=== PATIENT | male | born 1945 | race Caucasian/White ===

== ENCOUNTER 2019-10-02 11:53 | Emergency (ER) | payer MEDICARE, SELFPAY ==
[2019-10-02 12:11] LABS: Add Urine Microscopic? YES; Appearance Urine Clear (Clear); Bilirubin Urine Negative (Negative); Blood Urine 1+ (Negative); Color Urine Yellow (Yellow); Glucose Urine UA Negative (Negative); Ketones Urine Negative (Negative); Leukocyte Esterase Ur 3+ LEU/UL (Negative); Nitrate Urine Positive (Negative); Protein Urine Negative (Negative); Urobilinogen Urine 0.2 mg/dL (0.2-1.0)
[2019-10-02 12:12] VITALS: PULSE 84; RESP 16; TEMP 37.3; O2SAT 97
[2019-10-02 12:21] LABS: Bacteria Urine Trace /hpf; WBC Urine 51-75 /hpf (0-3)
[2019-10-02 12:24] LABS: Basophils Absolute Auto 0.01 K/mm3 (0.00-0.10); Basophils Percent Auto 0.1 % (0.0-1.0); Eosinophils Absolute Auto 0.02 K/mm3 (0.02-0.50); Eosinophils Percent Auto 0.2 % (1.0-6.0); Hemoglobin 12.4 g/dL (12.4-15.3); Immature Granulocyte Absolute 0.05 K/mm3 (0.00-0.00); Immature Granulocyte Percent A 0.5 % (0.0-0.0); Lymphocytes Absolute Auto 0.85 K/mm3 (1.10-4.50); Lymphocytes Percent Auto 8.7 % (18.0-42.0); Mean Corpuscular HGB Conc 34.4 g/dL (32.0-36.0); Mean Corpuscular Hemoglobin 32.1 pg (27.0-31.0); Mean Corpuscular Volume 93.3 fL (78.0-102.0); Mean Platelet Volume 8.6 fl (8.7-11.0); Monocytes Absolute Auto 0.69 K/mm3 (0.10-0.90); Monocytes Percent Auto 7.1 % (2.0-11.0); Neutrophils Absolute Auto 8.2 K/mm3 (1.7-7.2); Neutrophils Percent Auto 83.4 % (50.0-70.0); Platelet Count Result 154 K/mm3 (150-420); Red Blood Count 3.86 M/mm3 (4.70-6.10); Red Cell Distribution Width 13.3 % (11.6-14.4); White Blood Count 9.8 K/mm3 (4.8-10.8)
[2019-10-02 12:36] LABS: Alanine Aminotransferase 21 U/L (16-63); Albumin Level 3.6 g/dL (3.4-5.0); Alkaline Phosphatase 71 U/L (46-116); Anion Gap 18.3 mmol/L (7-16); Aspartate Amino Transferase 14 U/L (15-37); Bilirubin,Total 0.5 mg/dL (0.00-1.00); Blood Urea Nitrogen 40 mg/dL (7-18); Calcium 9.6 mg/dL (8.5-10.1); Carbon Dioxide 21 mmol/L (21-32); Chloride 104 mmol/L (98-108); Estimated Glomerular Filt Rate 26; Glucose 134 mg/dL (70-99); Osmolality Calculated 299 mOsm/kg (285-295); Potassium 4.3 mmol/L (3.5-5.1); Sodium 139 mmol/L (136-145)
[2019-10-02] MEDS: SODIUM CHLORIDE 0.9% IV 1,000 ML 500 ML (12:51)
--- NOTE | 2019-10-02 13:25 | ED.ABDPAIN ---
HPI - Abdominal Pain General Chief Complaint: Abdominal Pain Stated Complaint: abd and back pain Source: patient Mode of arrival: ambulatory Limitations: no limitations History of Present Illness HPI narrative: This 74 y.o. had lower abdominal cramping yesterday shooting into the left flank area associated with a temp of 101.5 and chills. He feels well this AM. His encouraged him to be seen. He had 1 liter urine output throughout the night, more than usual. He has a hx of right nephrectomy, cystectomy, prostatectomy and urostomy placement in 2003 secondary to bladder cancer; also CKD and htn. He has frequent urinary tract infections, last one in June treated with Augmentin. Severity: moderate Quality: cramping Exacerbating factors: nothing Relieving factors: nothing (Tylenol) and other Related Data Home Medications Medication Instructions Recorded Confirmed amlodipine 5 mg PO DAILY 10/02/19 10/02/19 lisinopril 10 mg PO DAILY 10/02/19 10/02/19 [id number]-[id number]-vit K-lycop 1 tablet PO DAILY 10/02/19 10/02/19 [Men's Multivitamin] Allergies Allergy/AdvReac Type Severity Reaction Status Date / Time iohexol Allergy Flushing Verified 10/02/19 12:11 [From contrast - CT, X-RAY] Review of Systems Constitutional: Constitutional: Reports no additional constitutional complaints ENT: Denies sore throat Cardiovascular: Cardiovascular: Denies chest pain Respiratory: Respiratory: Denies dyspnea Gastrointestinal: Comments: No appetite over the past 24 hours Musculoskeletal: Musculoskeletal: Reports no additional musculoskeletal complaints Integumentary/Breasts: Skin/Breast: Denies rash Neurologic: Denies headache(s) PMFSH Past Medical History Medical History (Updated 10/03/19 @ 06:37 by Ben Upton MD) Bladder cancer CKD (chronic kidney disease) stage 3, GFR 30-59 ml/min Hypertension Surgical History Surgical History (Updated 10/03/19 @ 06:28 by Ben Upton MD) H/O prostatectomy History of nephrectomy, right History of total cystectomy Family History Family History (Updated 01/11/16 @ 08:57 by DOCTOR UNKNOWN) Other Family history of cardiovascular disease Family history of malignant neoplasm Social History Social History Smoking status: Former smoker Smoking end date: 06/02/06 Alcohol intake: current Exam Const: General: healthy appearing, no acute distress and alert Orientation/consciousness: patient oriented x3 HENMT: Mouth: Yes moist mucous membranes Throat: posterior oropharynx normal Eyes: Conjunctivae: conjunctivae normal Neck: Neck: no lymphadenopathy Chest: Chest palpation & inspection: normal inspection of the chest Resp: Auscultation: clear to auscultation bilaterally Cardio: Rate: regular rate Rhythm: regular rhythm GI: GI Palp: Yes Soft to palpation, No Tenderness to palpation present (GI) and No Guarding due to palpation present (GI) Auscultation: Hypoactive bowel sounds present : General: Yes no CVA tenderness Other: minor tenderness to palpation left lateral flank. Urinary Catheter: Urinary Catheter: other (urostomy bag with light colored urine) Back/Spine/Pelvis: Back: no CVA tenderness Skin: General skin exam: normal color Neuro: General: patient oriented x3 Extrem: General: normal to inspection Course Course Emergency Course: No evidence of sepsis. With drop in kidney function pt. given 1 liter of fluids in E.D. and IV Rocephin. Await C & S I went over the importance of returning if he has recurrent pain. If fever or chills after 8 hours, return. Risk of inadequately treated pyelonephritis discussed. Vital Signs Vital signs: Vital Signs Temperature 37.3 C 10/02/19 12:12 Pulse Rate 84 10/02/19 12:12 Respiratory Rate 16 10/02/19 12:12 Pulse Oximetry 97 10/02/19 12:12 Temperature 37.3 C 10/02/19 12:12 Pulse Rate 70 10/02/19 14:12 Respiratory Rate 16 10/02/19 12:12 Blood Press
[2019-10-02] MEDS: cefTRIAXone 1 GM in DEXTROSE 5% IN WATER 50 ML IVPB (13:38)
[2019-10-02 14:12] VITALS: BP 153/72; PULSE 70; O2SAT 100
== END 2019-10-02 14:20 | disposition home or self-care (01) ==
PROVIDERS: Emergency Provider Family Medicine; PCP Internal Medicine
DX: N39.0 Urinary tract infection, site not specified (principal); Z85.51 Personal history of malignant neoplasm of bladder; N18.3 Chronic kidney disease, stage 3 (moderate); I12.9 Hypertensive chronic kidney disease with stage 1 through stage 4 chronic kidney disease, or unspecified chronic kidney disease; Z87.891 Personal history of nicotine dependence
CPT/HCPCS: 36415; 80053; 81001; 85025; 87086; 87088; 87147; 87186; 96361; 96365; 99283; 99284; J0696; J7030

== ENCOUNTER 2019-10-05 07:34 | Outpatient (CLI) | payer MEDICARE, SELFPAY ==
--- NOTE | ~2019-10-05 | CT_ITS ---
EXAMINATION: CT abdomen pelvis wo con DATE: 10/05/2019 09:45 INDICATION: Bladder cancer. Lower abdominal pain. TECHNIQUE: Computed tomography (CT) of the abdomen and pelvis was performed without intravenous contr ast. The dose-length product was 977.33 mGy-cm. Automated exposure control and iterative reconstructi on technique were employed. COMPARISON: CT dated 07/22/2017 FINDINGS: Lung bases are unremarkable. No significant pleural or pericardial effusion. Heart size is normal. There is a 2 cm cyst left hepatic lobe. There are smaller subcentimeter hypodensities, also l ikely benign. The spleen, pancreas, adrenal glands are unremarkable. The right kidney is surgically a bsent. Status post cystectomy. There is an ileal conduit in the right abdomen with parastomal hernia containing nonobstructed small bowel and colon small left paracentral ventral hernia containing fat. There is mild urothelial thickening of the left ureter. There are small subcentimeter hypodensities o f the left kidney, most likely cysts. The spleen, adrenal glands are unremarkable. Gallbladder is present. There is an accessory splenule. There is a punctate calcification of the pancreas, consistent with chronic pancreatitis. There is mil d lumbar spondylosis. No osteolytic or osteoblastic lesions are seen. IMPRESSION: 1. Mild left urothelial thickening. Consider correlation with urinalysis if there is concern for asce nding urinary tract infection. 2: No evidence for metastatic disease. 3: Status post right nephrectomy and cystectomy with ileal conduit. Peristomal hernia contains nonobs tructed colon and small bowel. Reviewed, dictated and finalized at location A. IMPRESSION: 1. Mild left urothelial thickening. Consider correlation with urinalysis if the re is concern for ascending urinary tract infection. 2: No evidence for metastatic disease. 3: Status post right nephrectomy and cystectomy with ileal conduit. Peristomal hernia contains nonobstructed colon and small bowel.
== END 2019-10-05 07:35 | disposition home or self-care (01) ==
LOC: CHSIMG 07:35
PROVIDERS: PCP Internal Medicine; Visit Provider Internal Medicine
DX: R10.30 Lower abdominal pain, unspecified (principal); N18.4 Chronic kidney disease, stage 4 (severe); K46.9 Unspecified abdominal hernia without obstruction or gangrene
CPT/HCPCS: 74176

== ENCOUNTER 2019-10-11 07:21 | Outpatient (CLI) | payer MEDICARE, SELFPAY ==
[2019-10-11 07:33] LABS: Basophils Absolute Auto 0.03 K/mm3 (0.00-0.10); Basophils Percent Auto 0.6 % (0.0-1.0); Eosinophils Absolute Auto 0.11 K/mm3 (0.02-0.50); Eosinophils Percent Auto 2.2 % (1.0-6.0); Hematocrit 37.9 % (37.0-46.0); Hemoglobin 12.7 g/dL (12.4-15.3); Immature Granulocyte Absolute 0.04 K/mm3 (0.00-0.00); Immature Granulocyte Percent A 0.8 % (0.0-0.0); Lymphocytes Absolute Auto 1.21 K/mm3 (1.10-4.50); Lymphocytes Percent Auto 24.5 % (18.0-42.0); Mean Corpuscular HGB Conc 33.5 g/dL (32.0-36.0); Mean Corpuscular Hemoglobin 31.6 pg (27.0-31.0); Mean Corpuscular Volume 94.3 fL (78.0-102.0); Mean Platelet Volume 8.5 fl (8.7-11.0); Monocytes Absolute Auto 0.36 K/mm3 (0.10-0.90); Monocytes Percent Auto 7.3 % (2.0-11.0); Neutrophils Absolute Auto 3.2 K/mm3 (1.7-7.2); Neutrophils Percent Auto 64.6 % (50.0-70.0); Platelet Count Result 211 K/mm3 (150-420); Red Blood Count 4.02 M/mm3 (4.70-6.10); Red Cell Distribution Width 12.8 % (11.6-14.4); White Blood Count 4.9 K/mm3 (4.8-10.8)
[2019-10-11 07:34] LABS: Add Urine Microscopic? NO; Appearance Urine Clear (Clear); Bilirubin Urine Negative (Negative); Blood Urine Negative (Negative); Color Urine Yellow (Yellow); Glucose Urine UA Negative (Negative); Ketones Urine Negative (Negative); Leukocyte Esterase Ur Negative (Negative); Nitrate Urine Negative (Negative); Protein Urine Negative (Negative); Specific Grav Ur 1.015 (1.010-1.020); Urobilinogen Urine 0.2 mg/dL (0.2-1.0)
[2019-10-11 08:03] LABS: Blood Urea Nitrogen 31 mg/dL (7-18); Calcium 9.3 mg/dL (8.5-10.1); Carbon Dioxide 27 mmol/L (21-32); Chloride 106 mmol/L (98-108); Estimated Glomerular Filt Rate 32; Glucose 126 mg/dL (70-99); Osmolality Calculated 302 mOsm/kg (285-295); Sodium 142 mmol/L (136-145)
== END 2019-10-11 07:22 | disposition home or self-care (01) ==
LOC: CHSLAB 07:22
PROVIDERS: PCP Internal Medicine; Visit Provider Internal Medicine
DX: N39.0 Urinary tract infection, site not specified (principal); N18.4 Chronic kidney disease, stage 4 (severe)
CPT/HCPCS: 36415; 80048; 81003; 85025; 87086

== ENCOUNTER 2020-02-14 08:14 | Outpatient (CLI) | payer MEDICARE, SELFPAY ==
[2020-02-14 08:29] LABS: Hematocrit 38.2 % (37.0-46.0); Hemoglobin 12.2 g/dL (12.4-15.3); Mean Corpuscular HGB Conc 31.9 g/dL (32.0-36.0); Mean Corpuscular Hemoglobin 31.9 pg (27.0-31.0); Mean Corpuscular Volume 99.7 fL (78.0-102.0); Platelet Count Result 199 K/mm3 (150-420); Red Blood Count 3.83 M/mm3 (4.70-6.10); Red Cell Distribution Width 12.5 % (11.6-14.4); White Blood Count 9.5 K/mm3 (4.8-10.8)
[2020-02-14 08:31] LABS: Bilirubin Urine Negative (Negative); Blood Urine 2+ (Negative); Glucose Urine UA Negative (Negative); Ketones Urine Negative (Negative); Leukocyte Esterase Ur 3+ LEU/UL (Negative); Nitrate Urine Positive (Negative); Protein Urine Negative (Negative); Specific Grav Ur 1.015 (1.010-1.020); Urobilinogen Urine 0.2 mg/dL (0.2-1.0)
[2020-02-14 08:38] LABS: Hemoglobin A1C 5.8 % (<5.7)
[2020-02-14 08:47] LABS: Color Urine Yellow (Yellow)
[2020-02-14 08:48] LABS: Add Urine Microscopic? YES; Appearance Urine Cloudy (Clear); RBC Urine 21-50 /hpf (0-2); Squamous Epithelial Cell Urine Few /hpf (Few); WBC Urine >75 /hpf (0-3)
[2020-02-14 08:49] LABS: Bacteria Urine 3+ /hpf; Transitional Epi Cells Urine Occasional /hpf
[2020-02-14 09:34] LABS: Alanine Aminotransferase 19 U/L (16-63); Albumin Level 3.9 g/dL (3.4-5.0); Alkaline Phosphatase 67 U/L (46-116); Anion Gap 11 mmol/L (8-16); Aspartate Amino Transferase 10 U/L (15-37); Bilirubin,Total 0.5 mg/dL (0.00-1.00); Blood Urea Nitrogen 50 mg/dL (7-18); Calcium 9.1 mg/dL (8.5-10.1); Carbon Dioxide 22 mmol/L (21-32); Chloride 104 mmol/L (98-108); Cholesterol 146 mg/dL (0-200); Estimated Glomerular Filt Rate 23; Glucose 141 mg/dL (70-99); HDL Direct 48 mg/dL (40-60); LDL Cholesterol Calculated 80 mg/dL (<130); Osmolality Calculated 299 mOsm/kg (285-295); Potassium 4.9 mmol/L (3.5-5.1); Sodium 137 mmol/L (136-145); Total Protein 7.2 g/dL (6.4-8.2); Triglycerides 92 mg/dL (0-150)
[2020-02-18 14:03] LABS: Parathyroid Intact 31 pg/mL (14-64)
== END 2020-02-14 08:15 | disposition home or self-care (01) ==
LOC: CHSLAB 08:18
PROVIDERS: PCP Internal Medicine; Visit Provider Internal Medicine
DX: E78.2 Mixed hyperlipidemia (principal); I12.9 Hypertensive chronic kidney disease with stage 1 through stage 4 chronic kidney disease, or unspecified chronic kidney disease; N18.3 Chronic kidney disease, stage 3 (moderate); R73.01 Impaired fasting glucose; R82.90 Unspecified abnormal findings in urine
CPT/HCPCS: 36415; 80053; 80061; 81001; 83036; 83970; 85027; 87077; 87086; 87088; 87186

== ENCOUNTER 2020-02-17 08:32 | Outpatient (CLI) | payer MEDICARE, SELFPAY ==
[2020-02-17 09:22] LABS: Anion Gap 9 mmol/L (8-16); Blood Urea Nitrogen 49 mg/dL (7-18); Calcium 9.3 mg/dL (8.5-10.1); Carbon Dioxide 25 mmol/L (21-32); Chloride 106 mmol/L (98-108); Estimated Glomerular Filt Rate 24; Glucose 117 mg/dL (70-99); Osmolality Calculated 304 mOsm/kg (285-295); Potassium 4.9 mmol/L (3.5-5.1); Sodium 140 mmol/L (136-145)
== END 2020-02-17 08:33 | disposition home or self-care (01) ==
LOC: CHSLAB 08:34
PROVIDERS: PCP Internal Medicine; Visit Provider Internal Medicine
DX: N18.3 Chronic kidney disease, stage 3 (moderate) (principal)
CPT/HCPCS: 36415; 80048

== ENCOUNTER 2020-02-23 13:32 | Outpatient (CLI) | payer MEDICARE, SELFPAY ==
[2020-02-23 13:45] LABS: Add Urine Microscopic? NO; Appearance Urine Clear (Clear); Bilirubin Urine Negative (Negative); Blood Urine Negative (Negative); Color Urine Yellow (Yellow); Glucose Urine UA Negative (Negative); Ketones Urine Negative (Negative); Leukocyte Esterase Ur Negative (Negative); Nitrate Urine Negative (Negative); Protein Urine Negative (Negative); Specific Grav Ur <= 1.005 (1.010-1.020); Urobilinogen Urine 0.2 mg/dL (0.2-1.0)
[2020-02-23 14:27] LABS: Anion Gap 12 mmol/L (8-16); Blood Urea Nitrogen 43 mg/dL (7-18); Calcium 9.4 mg/dL (8.5-10.1); Carbon Dioxide 22 mmol/L (21-32); Chloride 103 mmol/L (98-108); Estimated Glomerular Filt Rate 25; Glucose 106 mg/dL (70-99); Osmolality Calculated 294 mOsm/kg (285-295); Potassium 4.7 mmol/L (3.5-5.1); Sodium 137 mmol/L (136-145)
== END 2020-02-23 13:33 | disposition home or self-care (01) ==
LOC: CHSLAB 13:34
PROVIDERS: PCP Internal Medicine; Visit Provider Internal Medicine
DX: N39.0 Urinary tract infection, site not specified (principal); N18.4 Chronic kidney disease, stage 4 (severe)
CPT/HCPCS: 36415; 80048; 81003; 87086; 87088

== ENCOUNTER 2020-03-06 14:51 | Outpatient (CLI) | payer MEDICARE, SELFPAY ==
[2020-03-06 15:06] LABS: Appearance Urine Clear (Clear); Bilirubin Urine Negative (Negative); Color Urine Yellow (Yellow); Glucose Urine UA Negative (Negative); Ketones Urine Negative (Negative); Leukocyte Esterase Ur 2+ (Negative); Nitrate Urine Positive (Negative); Protein Urine Negative (Negative); Urobilinogen Urine 0.2 mg/dL (0.2-1.0)
[2020-03-06 15:10] LABS: Add Urine Microscopic? YES; Bacteria Urine 3+ /hpf; Blood Urine Trace (Negative); RBC Urine 0-2 /hpf (0-2); Squamous Epithelial Cell Urine Rare /hpf (Few); WBC Urine 21-30 /hpf (0-3)
[2020-03-06 15:27] LABS: Anion Gap 11 mmol/L (8-16); Blood Urea Nitrogen 41 mg/dL (7-18); Calcium 8.9 mg/dL (8.5-10.1); Carbon Dioxide 25 mmol/L (21-32); Chloride 106 mmol/L (98-108); Estimated Glomerular Filt Rate 27; Glucose 110 mg/dL (70-99); Osmolality Calculated 305 mOsm/kg (285-295); Potassium 4.4 mmol/L (3.5-5.1); Sodium 142 mmol/L (136-145)
== END 2020-03-06 14:52 | disposition home or self-care (01) ==
LOC: CHSLAB 14:53
PROVIDERS: PCP Internal Medicine; Visit Provider Internal Medicine
DX: N30.00 Acute cystitis without hematuria (principal); N18.30 Chronic kidney disease, stage 3 unspecified
CPT/HCPCS: 36415; 80048; 81001; 87077; 87086; 87088; 87186

== ENCOUNTER 2020-03-14 08:24 | Outpatient (CLI) | payer MEDICARE, SELFPAY ==
[2020-03-14 09:52] LABS: Anion Gap 11 mmol/L (8-16); Blood Urea Nitrogen 38 mg/dL (7-18); Calcium 9.2 mg/dL (8.5-10.1); Carbon Dioxide 23 mmol/L (21-32); Chloride 105 mmol/L (98-108); Estimated Glomerular Filt Rate 26; Glucose 112 mg/dL (70-99); Osmolality Calculated 298 mOsm/kg (285-295); Potassium 4.9 mmol/L (3.5-5.1); Sodium 139 mmol/L (136-145)
== END 2020-03-14 08:25 | disposition home or self-care (01) ==
LOC: CHSLAB 08:25
PROVIDERS: PCP Internal Medicine; Visit Provider Internal Medicine
DX: R79.89 Other specified abnormal findings of blood chemistry (principal)
CPT/HCPCS: 36415; 80048

== ENCOUNTER 2020-03-30 08:56 | Outpatient (CLI) | payer MEDICARE, SELFPAY ==
[2020-03-30 09:31] LABS: Anion Gap 9 mmol/L (8-16); Blood Urea Nitrogen 30 mg/dL (7-18); Calcium 9.1 mg/dL (8.5-10.1); Carbon Dioxide 28 mmol/L (21-32); Chloride 106 mmol/L (98-108); Estimated Glomerular Filt Rate 28; Glucose 165 mg/dL (70-99); Osmolality Calculated 306 mOsm/kg (285-295); Potassium 4.6 mmol/L (3.5-5.1); Sodium 143 mmol/L (136-145)
== END 2020-03-30 08:57 | disposition home or self-care (01) ==
LOC: CHSLAB 08:58
PROVIDERS: PCP Internal Medicine; Visit Provider Internal Medicine
DX: R79.89 Other specified abnormal findings of blood chemistry (principal)
CPT/HCPCS: 36415; 80048

== ENCOUNTER 2020-08-25 09:31 | Outpatient (CLI) | payer MEDICARE, SELFPAY ==
[2020-08-25 09:47] LABS: Basophils Absolute Auto 0.01 K/mm3 (0.00-0.10); Basophils Percent Auto 0.2 % (0.0-1.0); Eosinophils Absolute Auto 0.05 K/mm3 (0.02-0.50); Eosinophils Percent Auto 0.8 % (1.0-6.0); Hematocrit 33.6 % (37.0-46.0); Hemoglobin 11.3 g/dL (12.4-15.3); Immature Granulocyte Absolute 0.02 K/mm3 (0.00-0.00); Immature Granulocyte Percent A 0.3 % (0.0-0.0); Lymphocytes Absolute Auto 1.07 K/mm3 (1.10-4.50); Lymphocytes Percent Auto 17.8 % (18.0-42.0); Mean Corpuscular HGB Conc 33.6 g/dL (32.0-36.0); Mean Corpuscular Hemoglobin 31.4 pg (27.0-31.0); Mean Corpuscular Volume 93.3 fL (78.0-102.0); Mean Platelet Volume 8.2 fl (8.7-11.0); Monocytes Absolute Auto 0.52 K/mm3 (0.10-0.90); Monocytes Percent Auto 8.7 % (2.0-11.0); Neutrophils Absolute Auto 4.3 K/mm3 (1.7-7.2); Neutrophils Percent Auto 72.2 % (50.0-70.0); Platelet Count Result 153 K/mm3 (150-420); Red Cell Distribution Width 13.2 % (11.6-14.4)
[2020-08-25 10:11] LABS: Hemoglobin A1C 5.8 % (<5.7)
[2020-08-25 10:27] LABS: Alanine Aminotransferase 19 U/L (16-63); Albumin Level 3.5 g/dL (3.4-5.0); Alkaline Phosphatase 67 U/L (46-116); Anion Gap 11 mmol/L (8-16); Aspartate Amino Transferase 16 U/L (15-37); Bilirubin,Total 0.6 mg/dL (0.00-1.00); Blood Urea Nitrogen 39 mg/dL (7-18); Calcium 8.8 mg/dL (8.5-10.1); Carbon Dioxide 26 mmol/L (21-32); Chloride 103 mmol/L (98-108); Cholesterol 140 mg/dL (0-200); Creatine Kinase 87 U/L (39-308); Estimated Glomerular Filt Rate 21; Glucose 129 mg/dL (70-99); HDL Direct 45 mg/dL (40-60); LDL Cholesterol Calculated 70 mg/dL (<130); Osmolality Calculated 301 mOsm/kg (285-295); Potassium 4.4 mmol/L (3.5-5.1); Sodium 140 mmol/L (136-145); Total Protein 6.7 g/dL (6.4-8.2); Triglycerides 123 mg/dL (0-150)
[2020-08-25 10:48] LABS: Add Urine Microscopic? YES; Appearance Urine Sl Cloudy (Clear); Bilirubin Urine Negative (Negative); Blood Urine 1+ (Negative); Color Urine Yellow (Yellow); Glucose Urine UA Negative (Negative); Ketones Urine Negative (Negative); Leukocyte Esterase Ur 3+ (Negative); Nitrate Urine Negative (Negative); Protein Urine Trace (Negative); Urobilinogen Urine 0.2 mg/dL (0.2-1.0)
[2020-08-25 10:53] LABS: Bacteria Urine 3+ /hpf; WBC Urine 51-75 /hpf (0-3)
== END 2020-08-25 09:32 | disposition home or self-care (01) ==
LOC: CHSLAB 09:32
PROVIDERS: PCP Internal Medicine; Visit Provider Internal Medicine
DX: N39.0 Urinary tract infection, site not specified (principal); I12.9 Hypertensive chronic kidney disease with stage 1 through stage 4 chronic kidney disease, or unspecified chronic kidney disease; R73.01 Impaired fasting glucose; N18.30 Chronic kidney disease, stage 3 unspecified; E78.2 Mixed hyperlipidemia
CPT/HCPCS: 36415; 80053; 80061; 81001; 82550; 83036; 85025; 87077; 87086; 87088; 87186

== ENCOUNTER 2020-09-01 07:48 | Outpatient (CLI) | payer MEDICARE, SELFPAY ==
[2020-09-01 08:01] LABS: Add Urine Microscopic? YES; Appearance Urine Clear (Clear); Bilirubin Urine Negative (Negative); Blood Urine Negative (Negative); Color Urine Yellow (Yellow); Glucose Urine UA Negative (Negative); Ketones Urine Negative (Negative); Leukocyte Esterase Ur 1+ (Negative); Nitrate Urine Positive (Negative); Protein Urine Negative (Negative); Specific Grav Ur 1.015 (1.010-1.020); Urobilinogen Urine 0.2 mg/dL (0.2-1.0); pH Urine 5.5 (5.0-8.0)
[2020-09-01 08:09] LABS: RBC Urine 0-2 /hpf (0-2)
[2020-09-01 08:10] LABS: Bacteria Urine Trace /hpf; Squamous Epithelial Cell Urine Rare /hpf (Few)
== END 2020-09-01 07:49 | disposition home or self-care (01) ==
LOC: CHSLAB 07:50
PROVIDERS: PCP Internal Medicine; Visit Provider Internal Medicine
DX: N39.0 Urinary tract infection, site not specified (principal)
CPT/HCPCS: 81001; 87077; 87086; 87088; 87186

== ENCOUNTER 2020-09-11 08:13 | Outpatient (CLI) | payer MEDICARE, SELFPAY ==
[2020-09-11 08:24] LABS: Add Urine Microscopic? YES; Appearance Urine Sl Cloudy (Clear); Bilirubin Urine Negative (Negative); Blood Urine 1+ (Negative); Color Urine Yellow (Yellow); Glucose Urine UA Negative (Negative); Ketones Urine Negative (Negative); Leukocyte Esterase Ur 3+ (Negative); Nitrate Urine Negative (Negative); Protein Urine Trace (Negative); Specific Grav Ur 1.015 (1.010-1.020); Urobilinogen Urine 0.2 mg/dL (0.2-1.0)
[2020-09-11 08:29] LABS: Bacteria Urine Trace /hpf; WBC Urine 31-50 /hpf (0-3)
[2020-09-11 09:44] LABS: Anion Gap 8 mmol/L (8-16); Blood Urea Nitrogen 39 mg/dL (7-18); Calcium 8.8 mg/dL (8.5-10.1); Carbon Dioxide 25 mmol/L (21-32); Chloride 107 mmol/L (98-108); Estimated Glomerular Filt Rate 25; Glucose 125 mg/dL (70-99); Osmolality Calculated 300 mOsm/kg (285-295); Potassium 4.8 mmol/L (3.5-5.1); Sodium 140 mmol/L (136-145)
== END 2020-09-11 08:14 | disposition home or self-care (01) ==
LOC: CHSLAB 08:14
PROVIDERS: PCP Internal Medicine; Visit Provider Internal Medicine
DX: R79.89 Other specified abnormal findings of blood chemistry (principal); N39.0 Urinary tract infection, site not specified
CPT/HCPCS: 36415; 80048; 81001; 87077; 87086; 87088; 87186

== ENCOUNTER 2020-12-20 07:22 | Outpatient (CLI) | payer MEDICARE, SELFPAY ==
[2020-12-20 07:37] LABS: Basophils Absolute Auto 0.02 K/mm3 (0.00-0.10); Basophils Percent Auto 0.4 % (0.0-1.0); Eosinophils Absolute Auto 0.13 K/mm3 (0.02-0.50); Eosinophils Percent Auto 2.9 % (1.0-6.0); Hemoglobin 11.6 g/dL (12.4-15.3); Immature Granulocyte Absolute 0.02 K/mm3 (0.00-0.00); Immature Granulocyte Percent A 0.4 % (0.0-0.0); Lymphocytes Absolute Auto 1.32 K/mm3 (1.10-4.50); Lymphocytes Percent Auto 28.9 % (18.0-42.0); Mean Corpuscular HGB Conc 33.1 g/dL (32.0-36.0); Mean Corpuscular Hemoglobin 31.3 pg (27.0-31.0); Mean Corpuscular Volume 94.3 fL (78.0-102.0); Mean Platelet Volume 8.4 fl (8.7-11.0); Monocytes Absolute Auto 0.32 K/mm3 (0.10-0.90); Neutrophils Absolute Auto 2.8 K/mm3 (1.7-7.2); Neutrophils Percent Auto 60.4 % (50.0-70.0); Platelet Count Result 158 K/mm3 (150-420); Red Blood Count 3.71 M/mm3 (4.70-6.10); Red Cell Distribution Width 13.5 % (11.6-14.4); White Blood Count 4.6 K/mm3 (4.8-10.8)
[2020-12-20 07:38] LABS: Appearance Urine Sl Cloudy (Clear); Bilirubin Urine Negative (Negative); Color Urine Light Yellow (Yellow); Glucose Urine UA Negative (Negative); Ketones Urine Negative (Negative); Leukocyte Esterase Ur 3+ (Negative); Nitrate Urine Negative (Negative); Protein Urine Negative (Negative); Specific Grav Ur 1.015 (1.010-1.020); Urobilinogen Urine 0.2 mg/dL (0.2-1.0)
[2020-12-20 07:43] LABS: Add Urine Microscopic? YES; Bacteria Urine 3+ /hpf; Blood Urine Trace-Intact (Negative); RBC Urine 0-2 /hpf (0-2); WBC Urine 16-20 /hpf (0-3)
[2020-12-20 08:13] LABS: Hemoglobin A1C 5.5 % (<5.7)
[2020-12-20 08:34] LABS: Alanine Aminotransferase 22 U/L (16-63); Albumin Level 3.6 g/dL (3.4-5.0); Alkaline Phosphatase 69 U/L (46-116); Anion Gap 11 mmol/L (8-16); Aspartate Amino Transferase 12 U/L (15-37); Bilirubin,Total 0.3 mg/dL (0.00-1.00); Blood Urea Nitrogen 45 mg/dL (7-18); Carbon Dioxide 24 mmol/L (21-32); Chloride 108 mmol/L (98-108); Estimated Glomerular Filt Rate 28; Ferritin 345 ng/mL (26-388); Glucose 111 mg/dL (70-99); Iron 60 ug/dL (65-175); Osmolality Calculated 308 mOsm/kg (285-295); Percent Iron Saturation 23 % (12-57); Potassium 5.1 mmol/L (3.5-5.1); Sodium 143 mmol/L (136-145); Total Protein 6.6 g/dL (6.4-8.2)
== END 2020-12-20 07:23 | disposition home or self-care (01) ==
LOC: CHSLAB 07:25
PROVIDERS: PCP Internal Medicine; Visit Provider Internal Medicine
DX: R73.01 Impaired fasting glucose (principal); I12.9 Hypertensive chronic kidney disease with stage 1 through stage 4 chronic kidney disease, or unspecified chronic kidney disease; N18.30 Chronic kidney disease, stage 3 unspecified; N30.00 Acute cystitis without hematuria; D50.9 Iron deficiency anemia, unspecified
CPT/HCPCS: 36415; 80053; 81001; 82728; 83036; 83540; 83550; 85025; 87077; 87086; 87088; 87186

== ENCOUNTER 2021-01-02 07:07 | Outpatient (CLI) | payer MEDICARE, SELFPAY ==
[2021-01-02 07:26] LABS: Appearance Urine Clear (Clear); Bilirubin Urine Negative (Negative); Color Urine Light Yellow (Yellow); Glucose Urine UA Negative (Negative); Ketones Urine Negative (Negative); Leukocyte Esterase Ur Negative (Negative); Nitrate Urine Negative (Negative); Protein Urine Trace (Negative); Urobilinogen Urine 0.2 mg/dL (0.2-1.0)
[2021-01-02 07:38] LABS: Add Urine Microscopic? YES; Blood Urine Trace-Intact (Negative); Squamous Epithelial Cell Urine Rare /hpf (Few)
[2021-01-02 07:39] LABS: Bacteria Urine Trace /hpf
== END 2021-01-02 07:08 | disposition home or self-care (01) ==
LOC: CHSLAB 07:08
PROVIDERS: PCP Internal Medicine; Visit Provider Internal Medicine
DX: N39.0 Urinary tract infection, site not specified (principal)
CPT/HCPCS: 81001; 87086

== ENCOUNTER 2021-01-15 11:14 | Outpatient (CLI) | payer MEDICARE, SELFPAY ==
[2021-01-15 11:26] LABS: Basophils Absolute Auto 0.03 K/mm3 (0.00-0.10); Basophils Percent Auto 0.5 % (0.0-1.0); Eosinophils Absolute Auto 0.16 K/mm3 (0.02-0.50); Eosinophils Percent Auto 2.7 % (1.0-6.0); Hematocrit 35.7 % (37.0-46.0); Hemoglobin 11.8 g/dL (12.4-15.3); Immature Granulocyte Absolute 0.02 K/mm3 (0.00-0.00); Immature Granulocyte Percent A 0.3 % (0.0-0.0); Lymphocytes Absolute Auto 1.78 K/mm3 (1.10-4.50); Lymphocytes Percent Auto 30.6 % (18.0-42.0); Mean Corpuscular HGB Conc 33.1 g/dL (32.0-36.0); Mean Corpuscular Hemoglobin 31.5 pg (27.0-31.0); Mean Corpuscular Volume 95.2 fL (78.0-102.0); Mean Platelet Volume 8.4 fl (8.7-11.0); Monocytes Absolute Auto 0.41 K/mm3 (0.10-0.90); Neutrophils Absolute Auto 3.4 K/mm3 (1.7-7.2); Neutrophils Percent Auto 58.9 % (50.0-70.0); Platelet Count Result 144 K/mm3 (150-420); Red Blood Count 3.75 M/mm3 (4.70-6.10); Red Cell Distribution Width 13.4 % (11.6-14.4); White Blood Count 5.8 K/mm3 (4.8-10.8)
[2021-01-15 13:35] LABS: Anion Gap 13 mmol/L (8-16); Blood Urea Nitrogen 50 mg/dL (7-18); Calcium 8.7 mg/dL (8.5-10.1); Carbon Dioxide 20 mmol/L (21-32); Chloride 110 mmol/L (98-108); Estimated Glomerular Filt Rate 21; Ferritin 345 ng/mL (26-388); Glucose 87 mg/dL (70-99); Iron 106 ug/dL (65-175); Osmolality Calculated 308 mOsm/kg (285-295); Percent Iron Saturation 36 % (12-57); Potassium 5.2 mmol/L (3.5-5.1); Sodium 143 mmol/L (136-145)
== END 2021-01-15 11:15 | disposition home or self-care (01) ==
LOC: CHSLAB 11:16
PROVIDERS: PCP Internal Medicine; Visit Provider Internal Medicine
DX: R79.89 Other specified abnormal findings of blood chemistry (principal); D50.9 Iron deficiency anemia, unspecified
CPT/HCPCS: 36415; 80048; 82728; 83540; 83550; 85025

== ENCOUNTER 2021-06-19 07:46 | Outpatient (CLI) | payer MEDICARE, SELFPAY ==
[2021-06-19 08:00] LABS: Add Urine Microscopic? YES; Appearance Urine Sl Cloudy (Clear); Basophils Absolute Auto 0.03 K/mm3 (0.00-0.10); Basophils Percent Auto 0.6 % (0.0-1.0); Bilirubin Urine Negative (Negative); Blood Urine 3+ (Negative); Color Urine Light Yellow (Yellow); Eosinophils Absolute Auto 0.19 K/mm3 (0.02-0.50); Eosinophils Percent Auto 3.5 % (1.0-6.0); Glucose Urine UA Negative (Negative); Hematocrit 37.5 % (37.0-46.0); Hemoglobin 12.9 g/dL (12.4-15.3); Immature Granulocyte Absolute 0.02 K/mm3 (0.00-0.00); Immature Granulocyte Percent A 0.4 % (0.0-0.0); Ketones Urine Negative (Negative); Leukocyte Esterase Ur 2+ LEU/UL (Negative); Lymphocytes Percent Auto 33.4 % (18.0-42.0); Mean Corpuscular HGB Conc 34.4 g/dL (32.0-36.0); Mean Corpuscular Hemoglobin 32.4 pg (27.0-31.0); Mean Corpuscular Volume 94.2 fL (78.0-102.0); Mean Platelet Volume 8.4 fl (8.7-11.0); Monocytes Absolute Auto 0.33 K/mm3 (0.10-0.90); Monocytes Percent Auto 6.1 % (2.0-11.0); Nitrate Urine Negative (Negative); Platelet Count Result 132 K/mm3 (150-420); Protein Urine 2+ (Negative); Red Blood Count 3.98 M/mm3 (4.70-6.10); Red Cell Distribution Width 12.4 % (11.6-14.4); Urobilinogen Urine 0.2 mg/dL (0.2-1.0); White Blood Count 5.4 K/mm3 (4.8-10.8)
[2021-06-19 08:08] LABS: Bacteria Urine Trace /hpf; RBC Urine 21-50 /hpf (0-2); WBC Urine 16-20 /hpf (0-3)
[2021-06-19 09:29] LABS: Alanine Aminotransferase 21 U/L (16-63); Albumin Level 3.9 g/dL (3.4-5.0); Alkaline Phosphatase 65 U/L (46-116); Anion Gap 11 mmol/L (8-16); Aspartate Amino Transferase 13 U/L (15-37); Bilirubin,Total 0.3 mg/dL (0.00-1.00); Blood Urea Nitrogen 39 mg/dL (7-18); Calcium 8.8 mg/dL (8.5-10.1); Carbon Dioxide 22 mmol/L (21-32); Chloride 108 mmol/L (98-108); Cholesterol 153 mg/dL (0-200); Estimated Glomerular Filt Rate 27; Glucose 114 mg/dL (70-99); HDL Direct 47 mg/dL (40-60); LDL Cholesterol Calculated 89 mg/dL (<130); Osmolality Calculated 302 mOsm/kg (285-295); Potassium 4.6 mmol/L (3.5-5.1); Sodium 141 mmol/L (136-145); Total Protein 6.6 g/dL (6.4-8.2); Triglycerides 83 mg/dL (0-150)
[2021-06-19 09:41] LABS: Prostate Specific Antigen < 0.1 ng/mL (< OR = 4.0)
== END 2021-06-19 07:47 | disposition home or self-care (01) ==
LOC: CHSLAB 07:49
PROVIDERS: PCP Internal Medicine; Visit Provider Internal Medicine
DX: N39.0 Urinary tract infection, site not specified (principal); I10 Essential (primary) hypertension; Z12.5 Encounter for screening for malignant neoplasm of prostate; Z00.00 Encounter for general adult medical examination without abnormal findings
CPT/HCPCS: 36415; 80053; 80061; 81001; 84153; 85025; 87077; 87086; 87088; 87186; G0103

== ENCOUNTER 2021-11-19 07:30 | Outpatient (CLI) | payer MEDICARE, SELFPAY ==
--- NOTE | ~2021-11-19 | US_ITS ---
EXAMINATION: US venous doppler [facility] DATE: 11/19/2021 12:29 INDICATION: Bilateral lower limb pain and swelling TECHNIQUE: Grayscale ultrasound images without and with compression and Doppler ultrasound images of the bilateral lower extremity veins were obtained. COMPARISON: None. FINDINGS: The visualized portions of right common femoral vein, profunda (deep) femoral vein, femoral vein, pop liteal vein, posterior tibial veins, peroneal veins, gastrocnemius vein and greater saphenous vein ou tflow are patent. The visualized portions of left common femoral vein, profunda femoral vein, femoral vein, popliteal v ein, posterior tibial veins, peroneal veins, gastrocnemius vein and greater saphenous vein outflow ar e patent. IMPRESSION: 1. No deep venous thrombosis in either lower limb. Reviewed, dictated and finalized at location B.
[2021-11-19 07:46] LABS: Basophils Absolute Auto 0.02 K/mm3 (0.00-0.10); Basophils Percent Auto 0.4 % (0.0-1.0); Eosinophils Absolute Auto 0.17 K/mm3 (0.02-0.50); Immature Granulocyte Absolute 0.04 K/mm3 (0.00-0.00); Immature Granulocyte Percent A 0.7 % (0.0-0.0); Lymphocytes Absolute Auto 1.56 K/mm3 (1.10-4.50); Lymphocytes Percent Auto 27.7 % (18.0-42.0); Mean Corpuscular HGB Conc 34.2 g/dL (32.0-36.0); Mean Corpuscular Hemoglobin 32.5 pg (27.0-31.0); Mean Platelet Volume 8.7 fl (8.7-11.0); Monocytes Absolute Auto 0.35 K/mm3 (0.10-0.90); Monocytes Percent Auto 6.2 % (2.0-11.0); Neutrophils Absolute Auto 3.5 K/mm3 (1.7-7.2); Platelet Count Result 150 K/mm3 (150-420); Red Cell Distribution Width 12.2 % (11.6-14.4); White Blood Count 5.6 K/mm3 (4.8-10.8)
[2021-11-19 07:48] LABS: Add Urine Microscopic? YES; Appearance Urine Clear (Clear); Bilirubin Urine Negative (Negative); Blood Urine 2+ (Negative); Color Urine Light Yellow (Yellow); Glucose Urine UA Negative (Negative); Ketones Urine Negative (Negative); Leukocyte Esterase Ur 1+ (Negative); Nitrate Urine Negative (Negative); Protein Urine 2+ (Negative); Urobilinogen Urine 0.2 mg/dL (0.2-1.0)
[2021-11-19 07:59] LABS: Bacteria Urine 2+ /hpf; Squamous Epithelial Cell Urine Few /hpf (Few); WBC Urine 21-30 /hpf (0-3)
[2021-11-19 08:07] LABS: Hemoglobin A1C 5.4 % (<5.7)
[2021-11-19 08:44] LABS: Alanine Aminotransferase 22 U/L (16-63); Alkaline Phosphatase 69 U/L (46-116); Anion Gap 10 mmol/L (8-16); Aspartate Amino Transferase 13 U/L (15-37); Bilirubin,Total 0.3 mg/dL (0.00-1.00); Blood Urea Nitrogen 45 mg/dL (7-18); Calcium 8.7 mg/dL (8.5-10.1); Carbon Dioxide 19 mmol/L (21-32); Chloride 110 mmol/L (98-108); Cholesterol 182 mg/dL (0-200); Estimated Glomerular Filt Rate 24; Ferritin 244 ng/mL (26-388); Glucose 122 mg/dL (70-99); HDL Direct 55 mg/dL (40-60); Iron 65 ug/dL (65-175); LDL Cholesterol Calculated 112 mg/dL (<130); Osmolality Calculated 300 mOsm/kg (285-295); Percent Iron Saturation 21 % (12-57); Potassium 4.8 mmol/L (3.5-5.1); Sodium 139 mmol/L (136-145); Total Protein 6.7 g/dL (6.4-8.2); Triglycerides 77 mg/dL (0-150)
[2021-11-19 11:51] LABS: Free T4 Free Thyroxine 0.83 ng/dL (0.76-1.46); NT Pro B Type Natriuretic Pept 69 pg/mL (0-450); Uric Acid 8.7 mg/dL (3.5-7.2)
[2021-11-19 11:53] LABS: CRP < 0.2 mg/dL (0.0-0.9)
== END 2021-11-19 07:31 | disposition home or self-care (01) ==
PROVIDERS: PCP Internal Medicine; Visit Provider Nurse Practitioner Family
DX: M79.89 Other specified soft tissue disorders (principal); I12.9 Hypertensive chronic kidney disease with stage 1 through stage 4 chronic kidney disease, or unspecified chronic kidney disease; N18.4 Chronic kidney disease, stage 4 (severe); R73.01 Impaired fasting glucose; E78.2 Mixed hyperlipidemia; D64.9 Anemia, unspecified; N39.0 Urinary tract infection, site not specified; I50.9 Heart failure, unspecified
CPT/HCPCS: 36415; 80053; 80061; 81001; 82728; 83036; 83540; 83550; 83880; 84439; 84443; 84550; 85025; 86140; 87077; 87086; 87088; 87186; 93970

== ENCOUNTER 2022-04-22 09:35 | Outpatient (CLI) | payer MEDICARE, SELFPAY ==
[2022-04-22 10:01] LABS: Basophils Absolute Auto 0.01 K/mm3 (0.00-0.10); Basophils Percent Auto 0.2 % (0.0-1.0); Eosinophils Absolute Auto 0.31 K/mm3 (0.02-0.50); Eosinophils Percent Auto 6.2 % (1.0-6.0); Hematocrit 35.9 % (37.0-46.0); Hemoglobin 12.3 g/dL (12.4-15.3); Immature Granulocyte Absolute 0.02 K/mm3 (0.00-0.00); Immature Granulocyte Percent A 0.4 % (0.0-0.0); Lymphocytes Absolute Auto 1.36 K/mm3 (1.10-4.50); Lymphocytes Percent Auto 27.4 % (18.0-42.0); Mean Corpuscular HGB Conc 34.3 g/dL (32.0-36.0); Mean Corpuscular Hemoglobin 32.6 pg (27.0-31.0); Mean Corpuscular Volume 95.2 fL (78.0-102.0); Mean Platelet Volume 8.7 fl (8.7-11.0); Monocytes Absolute Auto 0.45 K/mm3 (0.10-0.90); Monocytes Percent Auto 9.1 % (2.0-11.0); Neutrophils Absolute Auto 2.8 K/mm3 (1.7-7.2); Neutrophils Percent Auto 56.7 % (50.0-70.0); Platelet Count Result 130 K/mm3 (150-420); Red Blood Count 3.77 M/mm3 (4.70-6.10); Red Cell Distribution Width 12.5 % (11.6-14.4)
[2022-04-22 10:53] LABS: Alanine Aminotransferase 23 U/L (16-63); Albumin Level 3.8 g/dL (3.4-5.0); Alkaline Phosphatase 58 U/L (46-116); Anion Gap 7 mmol/L (8-16); Aspartate Amino Transferase 21 U/L (15-37); Bilirubin,Total 0.5 mg/dL (0.00-1.00); Blood Urea Nitrogen 36 mg/dL (7-18); CRP 0.9 mg/dL (0.0-0.9); Calcium 8.8 mg/dL (8.5-10.1); Carbon Dioxide 27 mmol/L (21-32); Chloride 108 mmol/L (98-108); Estimated Glomerular Filt Rate 22; Free T3 2.87 pg/mL (2.18-3.98); Free T4 Free Thyroxine 0.83 ng/dL (0.76-1.46); Glucose 103 mg/dL (70-99); Osmolality Calculated 302 mOsm/kg (285-295); Potassium 4.9 mmol/L (3.5-5.1); Sodium 142 mmol/L (136-145); Total Protein 6.7 g/dL (6.4-8.2)
[2022-04-22 11:06] LABS: Erythrocyte Sedimentation Rate 20 mm/hr (0-20)
[2022-04-27 10:11] LABS: Reference Lab Test Name TRYPTASE
== END 2022-04-22 09:36 | disposition home or self-care (01) ==
LOC: CHSLAB 09:38
PROVIDERS: PCP Internal Medicine; Visit Provider Internal Medicine
DX: L03.311 Cellulitis of abdominal wall (principal); R21 Rash and other nonspecific skin eruption; R53.83 Other fatigue
CPT/HCPCS: 36415; 80053; 83520; 84439; 84443; 84481; 85025; 85652; 86140; 87070; 87075; 87147; 87186; 87205

== ENCOUNTER 2022-05-21 07:20 | Outpatient (CLI) | payer MEDICARE, SELFPAY ==
[2022-05-21 07:38] LABS: Basophils Absolute Auto 0.04 K/mm3 (0.00-0.10); Basophils Percent Auto 0.5 % (0.0-1.0); Eosinophils Absolute Auto 0.39 K/mm3 (0.02-0.50); Eosinophils Percent Auto 5.1 % (1.0-6.0); Hematocrit 39.6 % (37.0-46.0); Hemoglobin 13.7 g/dL (12.4-15.3); Immature Granulocyte Absolute 0.07 K/mm3 (0.00-0.00); Immature Granulocyte Percent A 0.9 % (0.0-0.0); Lymphocytes Absolute Auto 1.66 K/mm3 (1.10-4.50); Lymphocytes Percent Auto 21.5 % (18.0-42.0); Mean Corpuscular HGB Conc 34.6 g/dL (32.0-36.0); Mean Corpuscular Hemoglobin 32.7 pg (27.0-31.0); Mean Corpuscular Volume 94.5 fL (78.0-102.0); Mean Platelet Volume 8.8 fl (8.7-11.0); Monocytes Absolute Auto 0.53 K/mm3 (0.10-0.90); Monocytes Percent Auto 6.9 % (2.0-11.0); Neutrophils Percent Auto 65.1 % (50.0-70.0); Platelet Count Result 152 K/mm3 (150-420); Red Blood Count 4.19 M/mm3 (4.70-6.10); Red Cell Distribution Width 12.1 % (11.6-14.4); White Blood Count 7.7 K/mm3 (4.8-10.8)
[2022-05-21 07:40] LABS: Add Urine Microscopic? YES; Appearance Urine Clear (Clear); Bilirubin Urine Negative (Negative); Blood Urine Trace-Intact (Negative); Color Urine Light Yellow (Yellow); Glucose Urine UA Negative (Negative); Ketones Urine Negative (Negative); Leukocyte Esterase Ur 2+ LEU/UL (Negative); Nitrate Urine Positive (Negative); Protein Urine Negative (Negative); Urobilinogen Urine 0.2 mg/dL (0.2-1.0)
[2022-05-21 07:46] LABS: Bacteria Urine 2+ /hpf; RBC Urine 0-2 /hpf (0-2); Squamous Epithelial Cell Urine Rare /hpf (Few)
[2022-05-21 07:49] LABS: Creatinine Urine 63.47 mg/dL (40-278); MALB Creatinine Ratio 32.6 mg/g (0-30); Microalbumin Urine Random 20.7 mg/L
[2022-05-21 07:52] LABS: Hemoglobin A1C 5.8 % (<5.7)
[2022-05-21 08:09] LABS: Alanine Aminotransferase 21 U/L (16-63); Albumin Level 3.8 g/dL (3.4-5.0); Alkaline Phosphatase 68 U/L (46-116); Anion Gap 11 mmol/L (8-16); Aspartate Amino Transferase 17 U/L (15-37); Bilirubin,Total 0.3 mg/dL (0.00-1.00); Blood Urea Nitrogen 44 mg/dL (7-18); Calcium 8.9 mg/dL (8.5-10.1); Carbon Dioxide 22 mmol/L (21-32); Chloride 107 mmol/L (98-108); Cholesterol 190 mg/dL (0-200); Creatine Kinase 71 U/L (39-308); Estimated Glomerular Filt Rate 26; Glucose 117 mg/dL (70-99); HDL Direct 54 mg/dL (40-60); LDL Cholesterol Calculated 110 mg/dL (<130); Osmolality Calculated 302 mOsm/kg (285-295); Potassium 4.5 mmol/L (3.5-5.1); Sodium 140 mmol/L (136-145); Total Protein 6.8 g/dL (6.4-8.2); Triglycerides 129 mg/dL (0-150); Uric Acid 7.2 mg/dL (3.5-7.2)
== END 2022-05-21 07:21 | disposition home or self-care (01) ==
LOC: CHSLAB 07:22
PROVIDERS: PCP Internal Medicine; Visit Provider Internal Medicine
DX: E78.5 Hyperlipidemia, unspecified (principal); R73.01 Impaired fasting glucose; N39.0 Urinary tract infection, site not specified; E79.0 Hyperuricemia without signs of inflammatory arthritis and tophaceous disease
CPT/HCPCS: 36415; 80053; 80061; 81001; 82043; 82550; 83036; 84550; 85025; 87077; 87086; 87088; 87186

== ENCOUNTER 2022-08-13 09:31 | Outpatient (CLI) | payer MEDICARE, SELFPAY ==
[2022-08-13 09:55] LABS: Basophils Absolute Auto 0.02 K/mm3 (0.00-0.10); Basophils Percent Auto 0.4 % (0.0-1.0); Eosinophils Absolute Auto 0.12 K/mm3 (0.02-0.50); Eosinophils Percent Auto 2.3 % (1.0-6.0); Hematocrit 38.9 % (37.0-46.0); Hemoglobin 13.1 g/dL (12.4-15.3); Immature Granulocyte Absolute 0.01 K/mm3 (0.00-0.00); Immature Granulocyte Percent A 0.2 % (0.0-0.0); Lymphocytes Absolute Auto 1.36 K/mm3 (1.10-4.50); Lymphocytes Percent Auto 26.5 % (18.0-42.0); Mean Corpuscular HGB Conc 33.7 g/dL (32.0-36.0); Mean Corpuscular Hemoglobin 32.1 pg (27.0-31.0); Mean Corpuscular Volume 95.3 fL (78.0-102.0); Mean Platelet Volume 8.5 fl (8.7-11.0); Monocytes Absolute Auto 0.33 K/mm3 (0.10-0.90); Monocytes Percent Auto 6.4 % (2.0-11.0); Neutrophils Absolute Auto 3.3 K/mm3 (1.7-7.2); Neutrophils Percent Auto 64.2 % (50.0-70.0); Platelet Count Result 147 K/mm3 (150-420); Red Blood Count 4.08 M/mm3 (4.70-6.10); Red Cell Distribution Width 12.5 % (11.6-14.4); White Blood Count 5.1 K/mm3 (4.8-10.8)
[2022-08-13 10:41] LABS: Alanine Aminotransferase 23 U/L (16-63); Albumin Level 4.2 g/dL (3.4-5.0); Alkaline Phosphatase 62 U/L (46-116); Anion Gap 10 mmol/L (8-16); Aspartate Amino Transferase 17 U/L (15-37); Bilirubin,Total 0.4 mg/dL (0.00-1.00); Blood Urea Nitrogen 33 mg/dL (7-18); Calcium 9.1 mg/dL (8.5-10.1); Carbon Dioxide 24 mmol/L (21-32); Chloride 107 mmol/L (98-108); Estimated Glomerular Filt Rate 28; Free T3 3.04 pg/mL (2.18-3.98); Free T4 Free Thyroxine 0.83 ng/dL (0.76-1.46); Glucose 121 mg/dL (70-99); Osmolality Calculated 300 mOsm/kg (285-295); Potassium 5.1 mmol/L (3.5-5.1); Sodium 141 mmol/L (136-145); Thyroid Stimulating Hormone 0.92 uIU/mL (0.36-3.74); Total Protein 7.1 g/dL (6.4-8.2)
[2022-08-17 10:04] LABS: Immunoglobulin A 108 mg/dL (70-320)
[2022-08-19 11:20] LABS: Histone Antibody <1.0 U (<1.0)
== END 2022-08-13 09:32 | disposition home or self-care (01) ==
LOC: CHSLAB 09:34
PROVIDERS: PCP Internal Medicine; Visit Provider Internal Medicine
DX: R21 Rash and other nonspecific skin eruption (principal); R53.83 Other fatigue
CPT/HCPCS: 36415; 80053; 82784; 83516; 84439; 84443; 84481; 85025; 86038; 88305

== ENCOUNTER 2022-11-19 07:31 | Outpatient (CLI) | payer MEDICARE, SELFPAY ==
[2022-11-19 07:51] LABS: Basophils Absolute Auto 0.02 K/mm3 (0.00-0.10); Basophils Percent Auto 0.4 % (0.0-1.0); Eosinophils Absolute Auto 0.17 K/mm3 (0.02-0.50); Eosinophils Percent Auto 3.4 % (1.0-6.0); Hematocrit 38.2 % (37.0-46.0); Hemoglobin 12.8 g/dL (12.4-15.3); Immature Granulocyte Absolute 0.03 K/mm3 (0.00-0.00); Immature Granulocyte Percent A 0.6 % (0.0-0.0); Lymphocytes Absolute Auto 1.43 K/mm3 (1.10-4.50); Lymphocytes Percent Auto 28.2 % (18.0-42.0); Mean Corpuscular HGB Conc 33.5 g/dL (32.0-36.0); Mean Corpuscular Hemoglobin 32.1 pg (27.0-31.0); Mean Corpuscular Volume 95.7 fL (78.0-102.0); Mean Platelet Volume 8.5 fl (8.7-11.0); Monocytes Absolute Auto 0.32 K/mm3 (0.10-0.90); Monocytes Percent Auto 6.3 % (2.0-11.0); Neutrophils Absolute Auto 3.1 K/mm3 (1.7-7.2); Neutrophils Percent Auto 61.1 % (50.0-70.0); Platelet Count Result 127 K/mm3 (150-420); Red Blood Count 3.99 M/mm3 (4.70-6.10); Red Cell Distribution Width 12.3 % (11.6-14.4); White Blood Count 5.1 K/mm3 (4.8-10.8)
[2022-11-19 07:52] LABS: Appearance Urine Clear (Clear); Bilirubin Urine Negative (Negative); Blood Urine Trace-Intact (Negative); Color Urine Light Yellow (Yellow); Glucose Urine UA Negative (Negative); Ketones Urine Negative (Negative); Leukocyte Esterase Ur 2+ LEU/UL (Negative); Nitrate Urine Positive (Negative); Protein Urine Negative (Negative); Urobilinogen Urine 0.2 mg/dL (0.2-1.0)
[2022-11-19 07:58] LABS: Add Urine Microscopic? YES; RBC Urine 0-2 /hpf (0-2)
[2022-11-19 07:59] LABS: Bacteria Urine 1+ /hpf
[2022-11-19 08:03] LABS: Hemoglobin A1C 5.3 % (<5.7)
[2022-11-19 08:24] LABS: Alanine Aminotransferase 21 U/L (16-63); Alkaline Phosphatase 60 U/L (46-116); Anion Gap 11 mmol/L (8-16); Aspartate Amino Transferase 17 U/L (15-37); Bilirubin,Total 0.3 mg/dL (0.00-1.00); Blood Urea Nitrogen 48 mg/dL (7-18); Calcium 8.9 mg/dL (8.5-10.1); Carbon Dioxide 21 mmol/L (21-32); Chloride 108 mmol/L (98-108); Cholesterol 166 mg/dL (0-200); Estimated Glomerular Filt Rate 26; Glucose 125 mg/dL (70-99); HDL Direct 51 mg/dL (40-60); LDL Cholesterol Calculated 92 mg/dL (<130); Osmolality Calculated 303 mOsm/kg (285-295); Potassium 4.7 mmol/L (3.5-5.1); Sodium 140 mmol/L (136-145); Total Protein 6.7 g/dL (6.4-8.2); Triglycerides 113 mg/dL (0-150)
== END 2022-11-19 07:32 | disposition home or self-care (01) ==
LOC: CHSLAB 07:35
PROVIDERS: PCP Internal Medicine; Visit Provider Internal Medicine
DX: N18.4 Chronic kidney disease, stage 4 (severe) (principal); I10 Essential (primary) hypertension; E78.2 Mixed hyperlipidemia; R73.01 Impaired fasting glucose; R82.90 Unspecified abnormal findings in urine
CPT/HCPCS: 36415; 80053; 80061; 81001; 83036; 85025; 87077; 87086; 87088; 87186

== ENCOUNTER 2022-12-10 07:06 | Outpatient (CLI) | payer MEDICARE, SELFPAY ==
[2022-12-10 07:46] LABS: Anion Gap 10 mmol/L (8-16); Blood Urea Nitrogen 55 mg/dL (7-18); Calcium 9.2 mg/dL (8.5-10.1); Carbon Dioxide 26 mmol/L (21-32); Chloride 106 mmol/L (98-108); Estimated Glomerular Filt Rate 25; Glucose 129 mg/dL (70-99); Osmolality Calculated 311 mOsm/kg (285-295); Potassium 4.5 mmol/L (3.5-5.1); Sodium 142 mmol/L (136-145)
== END 2022-12-10 07:07 | disposition home or self-care (01) ==
LOC: CHSLAB 07:07
PROVIDERS: PCP Internal Medicine; Visit Provider Internal Medicine
DX: I10 Essential (primary) hypertension (principal)
CPT/HCPCS: 36415; 80048

== ENCOUNTER 2023-01-07 07:18 | Outpatient (CLI) | payer MEDICARE, SELFPAY ==
[2023-01-07 07:55] LABS: Anion Gap 12 mmol/L (8-16); Blood Urea Nitrogen 68 mg/dL (7-18); Carbon Dioxide 23 mmol/L (21-32); Chloride 106 mmol/L (98-108); Estimated Glomerular Filt Rate 23; Glucose 119 mg/dL (70-99); Osmolality Calculated 312 mOsm/kg (285-295); Potassium 4.6 mmol/L (3.5-5.1); Sodium 141 mmol/L (136-145)
== END 2023-01-07 07:19 | disposition home or self-care (01) ==
LOC: CHSLAB 07:19
PROVIDERS: PCP Internal Medicine; Visit Provider Internal Medicine
DX: I10 Essential (primary) hypertension (principal)
CPT/HCPCS: 36415; 80048

== ENCOUNTER 2023-02-14 07:42 | Outpatient (CLI) | payer MEDICARE, SELFPAY ==
--- NOTE | ~2023-02-14 | US_ITS ---
US renal BI 02/14/2023 12:55 Procedure: Realtime transabdominal ultrasound of the kidneys and bladder. Indication: Elevated creatinine Comparison: 08/17/2009 Findings: Right kidney is surgically absent. Left renal echotexture is normal without hydronephrosis, contour deforming mass or renal calculi. Left kidney is lobulated. Left kidney measures 13.1 cm. Bradley dder is surgically absent. Impression: 1: Unremarkable renal ultrasound status post right nephrectomy and cystectomy. Reviewed, dictated and finalized at location B. Impression: 1: Unremarkable renal ultrasound status post right nephrectomy and cystectomy.
[2023-02-14 08:23] LABS: Albumin Level 3.9 g/dL (3.4-5.0); Anion Gap 10 mmol/L (8-16); Blood Urea Nitrogen 54 mg/dL (7-18); Calcium 9.3 mg/dL (8.5-10.1); Carbon Dioxide 22 mmol/L (21-32); Chloride 107 mmol/L (98-108); Estimated Glomerular Filt Rate 25; Glucose 130 mg/dL (70-99); Osmolality Calculated 304 mOsm/kg (285-295); Phosphorus 4.3 mg/dL (2.6-4.7); Potassium 4.3 mmol/L (3.5-5.1); Sodium 139 mmol/L (136-145)
[2023-02-14 12:22] LABS: Total Protein Urine Random < 7.0 mg/dL (0.0-11.9)
[2023-02-14 12:26] LABS: Creatinine Urine 43.35 mg/dL (40-278); Ur Ttl Prot Creatinine Ratio 0.16 mg/mg (0-0.20)
[2023-02-18 21:00] LABS: Creatinine, Random Urine 49 mg/dL (20-320); Total Protein/Creatinine Ratio 408 mg/g creat (25-148)
[2023-02-18 22:16] LABS: Anti Glomerular Basement Memb <1.0 AI (<1.0)
[2023-02-19 10:30] LABS: Complement C3 128 mg/dL (82-185)
[2023-02-19 15:45] LABS: Albumin 4.2 g/dL (3.8-4.8); Alpha 1 Globulin 0.3 g/dL (0.2-0.3); Alpha 2 Globulin 0.8 g/dL (0.5-0.9); Beta 1 Globulin 0.4 g/dL (0.4-0.6); Gamma Globulin 0.6 g/dL (0.8-1.7); Interpretation Consistent with; Protein, Total 6.5 g/dL (6.1-8.1)
[2023-02-19 21:52] LABS: ANCA Screen Negative (Negative)
== END 2023-02-14 07:43 | disposition home or self-care (01) ==
LOC: CHSIMG 07:44
PROVIDERS: PCP Internal Medicine; Visit Provider Internal Medicine Nephrology
DX: I12.9 Hypertensive chronic kidney disease with stage 1 through stage 4 chronic kidney disease, or unspecified chronic kidney disease (principal); N18.4 Chronic kidney disease, stage 4 (severe)
CPT/HCPCS: 36415; 76775; 80069; 82570; 83520; 84155; 84156; 84165; 84166; 86036; 86038; 86160; 86225

== ENCOUNTER 2023-05-27 07:17 | Outpatient (CLI) | payer MEDICARE, SELFPAY ==
[2023-05-27 07:29] LABS: Basophils Absolute Auto 0.03 K/mm3 (0.00-0.10); Basophils Percent Auto 0.5 % (0.0-1.0); Eosinophils Absolute Auto 0.24 K/mm3 (0.02-0.50); Eosinophils Percent Auto 3.7 % (1.0-6.0); Hematocrit 36.7 % (37.0-46.0); Hemoglobin 12.5 g/dL (12.4-15.3); Immature Granulocyte Absolute 0.03 K/mm3 (0.00-0.00); Immature Granulocyte Percent A 0.5 % (0.0-0.0); Lymphocytes Absolute Auto 1.82 K/mm3 (1.10-4.50); Lymphocytes Percent Auto 28.2 % (18.0-42.0); Mean Corpuscular HGB Conc 34.1 g/dL (32.0-36.0); Mean Corpuscular Hemoglobin 32.2 pg (27.0-31.0); Mean Corpuscular Volume 94.6 fL (78.0-102.0); Mean Platelet Volume 8.6 fl (8.7-11.0); Monocytes Absolute Auto 0.45 K/mm3 (0.10-0.90); Neutrophils Absolute Auto 3.9 K/mm3 (1.7-7.2); Neutrophils Percent Auto 60.1 % (50.0-70.0); Platelet Count Result 149 K/mm3 (150-420); Red Blood Count 3.88 M/mm3 (4.70-6.10); Red Cell Distribution Width 12.2 % (11.6-14.4); White Blood Count 6.5 K/mm3 (4.8-10.8)
[2023-05-27 07:39] LABS: Hemoglobin A1C 5.5 % (<5.7)
[2023-05-27 08:54] LABS: Alanine Aminotransferase 29 U/L (16-63); Albumin Level 3.9 g/dL (3.4-5.0); Alkaline Phosphatase 53 U/L (46-116); Anion Gap 11 mmol/L (8-16); Aspartate Amino Transferase 12 U/L (15-37); Bilirubin,Total 0.2 mg/dL (0.00-1.00); Blood Urea Nitrogen 41 mg/dL (7-18); Calcium 8.7 mg/dL (8.5-10.1); Carbon Dioxide 23 mmol/L (21-32); Chloride 105 mmol/L (98-108); Cholesterol 153 mg/dL (0-200); Creatine Kinase 99 U/L (39-308); Estimated Glomerular Filt Rate 24; Glucose 116 mg/dL (70-99); HDL Direct 48 mg/dL (40-60); LDL Cholesterol Calculated 85 mg/dL (<130); Osmolality Calculated 299 mOsm/kg (285-295); Potassium 4.4 mmol/L (3.5-5.1); Prostate Specific Antigen < 0.1 ng/mL (< OR = 4.0); Sodium 139 mmol/L (136-145); Total Protein 6.5 g/dL (6.4-8.2); Triglycerides 99 mg/dL (0-150)
[2023-05-27 08:58] LABS: Bilirubin Urine Negative (Negative); Color Urine Light Yellow (Yellow); Glucose Urine UA Negative (Negative); Ketones Urine Negative (Negative); Leukocyte Esterase Ur 3+ (Negative); Nitrate Urine Positive (Negative); Protein Urine 1+ (Negative); Specific Grav Ur 1.015 (1.010-1.020); Urobilinogen Urine 0.2 mg/dL (0.2-1.0)
[2023-05-27 09:06] LABS: Add Urine Microscopic? YES; Appearance Urine Slightly Cloudy (Clear); Bacteria Urine 1+ /hpf; Blood Urine Trace-lysed (Negative)
== END 2023-05-27 07:18 | disposition home or self-care (01) ==
LOC: CHSLAB 07:19
PROVIDERS: PCP Internal Medicine; Visit Provider Internal Medicine
DX: I10 Essential (primary) hypertension (principal); R73.01 Impaired fasting glucose; N18.30 Chronic kidney disease, stage 3 unspecified; N39.0 Urinary tract infection, site not specified; E78.2 Mixed hyperlipidemia; Z12.5 Encounter for screening for malignant neoplasm of prostate
CPT/HCPCS: 36415; 80053; 80061; 81001; 82550; 83036; 84153; 85025; 87086; 87088; G0103

== ENCOUNTER 2023-06-30 08:24 | Outpatient (CLI) | payer MEDICARE, SELFPAY ==
[2023-06-30 08:47] LABS: Creatinine Urine 74.09 mg/dL (40-278); Total Protein Urine Random 45.2 mg/dL (0.0-11.9); Ur Ttl Prot Creatinine Ratio 0.61 mg/mg (0-0.20)
[2023-06-30 09:32] LABS: Albumin Level 3.7 g/dL (3.4-5.0); Anion Gap 11 mmol/L (8-16); Blood Urea Nitrogen 51 mg/dL (7-18); Calcium 8.3 mg/dL (8.5-10.1); Carbon Dioxide 24 mmol/L (21-32); Chloride 107 mmol/L (98-108); Estimated Glomerular Filt Rate 22; Glucose 149 mg/dL (70-99); Osmolality Calculated 310 mOsm/kg (285-295); Potassium 4.7 mmol/L (3.5-5.1); Sodium 142 mmol/L (136-145)
[2023-07-02 12:04] LABS: Vitamin D 25 Hydroxy 36 ng/mL (30-100)
[2023-07-03 15:06] LABS: Parathyroid Intact 102 pg/mL (14-64)
== END 2023-06-30 08:25 | disposition home or self-care (01) ==
LOC: CHSLAB 08:26
PROVIDERS: PCP Internal Medicine; Visit Provider Internal Medicine Nephrology
DX: E55.9 Vitamin D deficiency, unspecified (principal); I12.9 Hypertensive chronic kidney disease with stage 1 through stage 4 chronic kidney disease, or unspecified chronic kidney disease; N25.81 Secondary hyperparathyroidism of renal origin; N18.4 Chronic kidney disease, stage 4 (severe)
CPT/HCPCS: 36415; 80069; 82306; 82570; 83970; 84156

== ENCOUNTER 2023-11-12 06:53 | Outpatient (CLI) | payer MEDICARE, SELFPAY ==
[2023-11-12 07:21] LABS: Basophils Absolute Auto 0.03 K/mm3 (0.00-0.10); Basophils Percent Auto 0.4 % (0.0-1.0); Eosinophils Absolute Auto 0.18 K/mm3 (0.02-0.50); Eosinophils Percent Auto 2.4 % (1.0-6.0); Hematocrit 35.7 % (37.0-46.0); Immature Granulocyte Absolute 0.02 K/mm3 (0.00-0.00); Immature Granulocyte Percent A 0.3 % (0.0-0.0); Lymphocytes Absolute Auto 1.19 K/mm3 (1.10-4.50); Lymphocytes Percent Auto 15.9 % (18.0-42.0); Mean Corpuscular HGB Conc 33.6 g/dL (32-36); Mean Corpuscular Hemoglobin 31.7 pg (27.0-31.0); Mean Corpuscular Volume 94.2 fL (78.0-102.0); Mean Platelet Volume 9.1 fl (8.7-11.0); Monocytes Absolute Auto 0.45 K/mm3 (0.10-0.90); Platelet Count Result 143 K/mm3 (150-420); Red Blood Count 3.79 M/mm3 (4.70-6.10); Red Cell Distribution Width 12.7 % (11.6-14.4); White Blood Count 7.5 K/mm3 (4.8-10.8)
[2023-11-12 07:21] LABS: Appearance Urine Sl Cloudy (Clear); Bilirubin Urine Negative (Negative); Blood Urine Trace-intact (Negative); Color Urine Light Yellow (Yellow); Glucose Urine UA Negative (Negative); Ketones Urine Negative (Negative); Leukocyte Esterase Ur 3+ LEU/UL (Negative); Nitrate Urine Positive (Negative); Protein Urine Negative (Negative); Urobilinogen Urine 0.2 mg/dL (0.2-1.0)
[2023-11-12 07:24] LABS: Creatinine Urine 58.06 mg/dL (40-278); Total Protein Urine Random 35.4 mg/dL (0.0-11.9); Ur Ttl Prot Creatinine Ratio 0.61 mg/mg (0-0.20)
[2023-11-12 07:28] LABS: Hemoglobin A1C 5.5 % (<5.7)
[2023-11-12 07:34] LABS: Add Urine Microscopic? YES; Bacteria Urine 1+ /hpf; RBC Urine 0-2 /hpf (0-2); WBC Urine 21-30 /hpf (0-3)
[2023-11-12 07:46] LABS: Alanine Aminotransferase 26 U/L (16-63); Albumin Level 3.9 g/dL (3.4-5.0); Alkaline Phosphatase 55 U/L (46-116); Anion Gap 12 mmol/L (4-12); Aspartate Amino Transferase 15 U/L (15-37); Bilirubin,Total 0.3 mg/dL (0.00-1.00); Blood Urea Nitrogen 58 mg/dL (7-18); Carbon Dioxide 22 mmol/L (21-32); Chloride 106 mmol/L (98-108); Cholesterol 154 mg/dL (0-200); Estimated Glomerular Filt Rate 22; Glucose 121 mg/dL (70-99); HDL Direct 42 mg/dL (40-60); LDL Cholesterol Calculated 91 mg/dL (<130); Osmolality Calculated 307 mOsm/kg (285-295); Phosphorus 4.5 mg/dL (2.6-4.7); Potassium 4.8 mmol/L (3.5-5.1); Sodium 140 mmol/L (136-145); Total Protein 6.6 g/dL (6.4-8.2); Triglycerides 106 mg/dL (0-150)
== END 2023-11-12 06:54 | disposition home or self-care (01) ==
LOC: CHSLAB 06:57
PROVIDERS: PCP Internal Medicine; Visit Provider Internal Medicine Nephrology
DX: I12.9 Hypertensive chronic kidney disease with stage 1 through stage 4 chronic kidney disease, or unspecified chronic kidney disease (principal); N18.4 Chronic kidney disease, stage 4 (severe); R73.01 Impaired fasting glucose; E78.2 Mixed hyperlipidemia; R82.90 Unspecified abnormal findings in urine
CPT/HCPCS: 36415; 80053; 80061; 81001; 82570; 83036; 84100; 84156; 85025; 87086; 87088

== ENCOUNTER 2024-03-08 07:30 | Outpatient (CLI) | payer MEDICARE, SELFPAY ==
[2024-03-08 07:49] LABS: Hematocrit 35.1 % (37.0-46.0); Hemoglobin 11.9 g/dL (12.4-15.3); Mean Corpuscular HGB Conc 33.9 g/dL (32-36); Mean Corpuscular Hemoglobin 31.4 pg (27.0-31.0); Mean Corpuscular Volume 92.6 fL (78.0-102.0); Mean Platelet Volume 8.7 fl (8.7-11.0); Platelet Count Result 178 K/mm3 (150-420); Red Blood Count 3.79 M/mm3 (4.70-6.10); White Blood Count 5.3 K/mm3 (4.8-10.8)
[2024-03-08 08:01] LABS: Creatinine Urine 58.47 mg/dL (40-278); Total Protein Urine Random 28.3 mg/dL (0.0-11.9); Ur Ttl Prot Creatinine Ratio 0.48 mg/mg (0-0.20)
[2024-03-08 09:49] LABS: Albumin Level 3.8 g/dL (3.4-5.0); Anion Gap 12 mmol/L (4-12); Blood Urea Nitrogen 56 mg/dL (7-18); Calcium 8.9 mg/dL (8.5-10.1); Carbon Dioxide 21 mmol/L (21-32); Chloride 105 mmol/L (98-108); Estimated Glomerular Filt Rate 21; Ferritin 208 ng/mL (26-388); Glucose 131 mg/dL (70-99); Iron 77 ug/dL (65-175); Osmolality Calculated 303 mOsm/kg (285-295); Phosphorus 4.3 mg/dL (2.6-4.7); Potassium 4.6 mmol/L (3.5-5.1); Sodium 138 mmol/L (136-145); Vitamin B12 671 pg/mL (193-986)
[2024-03-09 11:43] LABS: Vitamin D 25 Hydroxy 41 ng/mL (30-100)
[2024-03-09 21:38] LABS: Parathyroid Intact 52 pg/mL (16-77)
== END 2024-03-08 07:31 | disposition home or self-care (01) ==
LOC: CHSLAB 07:31
PROVIDERS: PCP Internal Medicine; Visit Provider Internal Medicine Nephrology
DX: E55.9 Vitamin D deficiency, unspecified (principal); N25.81 Secondary hyperparathyroidism of renal origin; I12.9 Hypertensive chronic kidney disease with stage 1 through stage 4 chronic kidney disease, or unspecified chronic kidney disease
CPT/HCPCS: 36415; 80069; 82306; 82570; 82607; 82728; 83540; 83970; 84156; 85027

== ENCOUNTER 2024-03-22 09:44 | Outpatient (CLI) | payer MEDICARE, SELFPAY ==
--- NOTE | ~2024-03-22 | CT_ITS ---
CT abdomen pelvis wo con Ordering provider: Hernán Fajardo MD History: 78 years Male with . Diarrhea, Chills,X1DAY, CKD4,H/O BLADDER CANCER . Comparison: Oct 05 2019 Technique: CT abdomen and pelvis without IV and without oral contrast. Automated exposure control and iterative reconstruction technique were employed. The dose-length product was 837.60 mGy-cm. Findings: VISUALIZED LOWER CHEST: Normal. UPPER ABDOMINAL ORGANS: Liver: Multiple hypodensities with the largest measures 2.3 cm most likely a cyst. Clinical correlati on and ultrasound evaluation advised. Gallbladder: Contracted. Spleen: Normal. Stomach/duodenum: Normal small sliding hiatus hernia with thickened esophagus. Reflux esophagitis is highly suggestive. Pancreas: Normal. Adrenals: Slightly prominent left adrenal gland. Kidneys: Status post right nephrectomy. Lobulated outline of the left kidney with hypodensity in the left kidney lower pole measuring 1.4 cm most likely a cyst. Ultrasound evaluation advised. Tiny hypod ensity in the left kidney upper pole. ileal conduit is noted with left ostomy seen in the anterior abdominal wall. PELVIC ORGANS: Status post cystectomy. BOWEL AND MESENTERY: Colon: No evidence of diverticulitis. Normal appendix. Small Bowel: Normal. No obstruction. Peritoneum/mesentery: No free air or free fluid. No mesenteric lymphadenopathy. Small mesenteric lymp h nodes are noted with the largest measures 1.3 cm.. RETROPERITONEUM: Mild atheromatous disease of the abdominal aorta. No retroperitoneal lymphadenopat hy. MUSCULOSKELETAL: Superficial soft tissues: Left inguinal hernia with fat content. Otherwise, The superficial soft tiss ues are normal. Bones: Age appropriate degenerative changes of the spine. IMPRESSION: 1. Multiple hypodensities in the liver. Ultrasound evaluation and follow-up advised. 2. Small sliding hiatus hernia with reflux esophagitis. 3. Status post right nephrectomy and cystectomy. 4. Tiny hypodensities in the left kidney which may be cysts. Ultrasound evaluation advised. 5. Left ostomy with ileal conduit. Reviewed, dictated and finalized at location A. IMPRESSION: 1. Multiple hypodensities in the liver. Ultrasound evaluation and follow-up ad vised. 2. Small sliding hiatus hernia with reflux esophagitis. 3. Status post right nephrectomy and cystectomy. 4. Tiny hypodensities in the left kidney which may be cysts. Ultrasound evalua tion advised. 5. Left ostomy with ileal conduit.
[2024-03-22 10:27] LABS: Basophils Absolute Auto 0.01 K/mm3 (0.00-0.10); Basophils Percent Auto 0.2 % (0.0-1.0); Eosinophils Absolute Auto 0.04 K/mm3 (0.02-0.50); Eosinophils Percent Auto 0.9 % (1.0-6.0); Hematocrit 34.6 % (37.0-46.0); Hemoglobin 11.7 g/dL (12.4-15.3); Immature Granulocyte Absolute 0.02 K/mm3 (0.00-0.00); Immature Granulocyte Percent A 0.4 % (0.0-0.0); Lymphocytes Absolute Auto 0.86 K/mm3 (1.10-4.50); Lymphocytes Percent Auto 18.5 % (18.0-42.0); Mean Corpuscular HGB Conc 33.8 g/dL (32-36); Mean Corpuscular Hemoglobin 31.6 pg (27.0-31.0); Mean Corpuscular Volume 93.5 fL (78.0-102.0); Mean Platelet Volume 8.8 fl (8.7-11.0); Monocytes Absolute Auto 0.53 K/mm3 (0.10-0.90); Monocytes Percent Auto 11.4 % (2.0-11.0); Neutrophils Absolute Auto 3.18 K/mm3 (1.70-7.20); Neutrophils Percent Auto 68.6 % (50.0-70.0); Platelet Count Result 133 K/mm3 (150-420); Red Cell Distribution Width 13.6 % (11.6-14.4); White Blood Count 4.6 K/mm3 (4.8-10.8)
[2024-03-22 10:35] LABS: Alanine Aminotransferase 29 U/L (16-63); Albumin Level 3.6 g/dL (3.4-5.0); Alkaline Phosphatase 63 U/L (46-116); Anion Gap 13 mmol/L (4-12); Aspartate Amino Transferase 30 U/L (15-37); Bilirubin,Total 0.4 mg/dL (0.00-1.00); Blood Urea Nitrogen 56 mg/dL (7-18); CRP 1.5 mg/dL (0.0-0.9); Calcium 8.8 mg/dL (8.5-10.1); Carbon Dioxide 18 mmol/L (21-32); Chloride 108 mmol/L (98-108); Estimated Glomerular Filt Rate 21; Glucose 141 mg/dL (70-99); Osmolality Calculated 305 mOsm/kg (285-295); Potassium 4.3 mmol/L (3.5-5.1); Sodium 139 mmol/L (136-145); Total Protein 6.7 g/dL (6.4-8.2)
[2024-03-22 10:37] LABS: Lactic Acid Reflex 0.5 mmol/L (0.4-2.0)
[2024-03-22 11:30] LABS: Erythrocyte Sedimentation Rate 22 mm/hr (0-20)
== END 2024-03-22 09:45 | disposition home or self-care (01) ==
LOC: CHSLAB 09:46
PROVIDERS: PCP Internal Medicine; Visit Provider Internal Medicine
DX: R19.7 Diarrhea, unspecified (principal); N18.4 Chronic kidney disease, stage 4 (severe); K44.9 Diaphragmatic hernia without obstruction or gangrene; Z98.890 Other specified postprocedural states; Z93.3 Colostomy status
CPT/HCPCS: 36415; 74176; 80053; 83605; 85025; 85652; 86140

== ENCOUNTER 2024-03-23 07:38 | Outpatient (CLI) | payer MEDICARE, SELFPAY ==
[2024-03-23 08:52] LABS: Toxigenic C. Diff NEGATIVE (NEGATIVE)
[2024-03-26 11:38] LABS: Trichrome Ova and Parasites STATUS: FINAL
== END 2024-03-23 07:39 | disposition home or self-care (01) ==
LOC: CHSLAB 07:41
PROVIDERS: PCP Internal Medicine; Visit Provider Internal Medicine
DX: R19.7 Diarrhea, unspecified (principal); N18.4 Chronic kidney disease, stage 4 (severe)
CPT/HCPCS: 87045; 87177; 87209; 87427; 87449; 87493

== ENCOUNTER 2024-03-24 08:02 | Outpatient (CLI) | payer MEDICARE, SELFPAY ==
--- NOTE | ~2024-03-24 | US_ITS ---
EXAM: ABDOMEN ULTRASOUND HISTORY: LESIONS ON LIVER AND KIDNEYS NOTED ON CT ABDOMEN COMPARISON: Reference is made to a CT examination of the abdomen and pelvis performed most recently o n 03/22/2024 and dating back to 10/05/2019 FINDINGS: LIVER: The liver is unremarkable in size. Corresponding to the recent and prior CT scan are two well-circumscribed anechoic avascular structure s consistent with simple hepatic cysts. The largest measuring 24 mm in greatest dimension for which n o further follow-up is needed. The portal vein is patent, although demonstrating phasic flow. GALLBLADDER: No stones are identified within the gallbladder. No gallbladder wall thickening or pericholecystic fluid. BILE DUCTS: Common bile duct measures 2.9mm. PANCREAS: Limited evaluation of the pancreas secondary to overlying bowel gas SPLEEN: The spleen is unremarkable in echogenicity and size measuring 11.5cm in longitudinal dimensio n. RIGHT KIDNEY: Surgically absent LEFT KIDNEY: 15cm in length. No hydronephrosis or renal calculi. VASCULATURE : The abdominal aorta is poorly visualized secondary to overlying bowel gas. The IVC appears patent. IMPRESSION: 2 simple cysts within the liver, corresponding to prior CT examinations for which no further follow-u p is needed. Phasic flow within the portal vein. Evaluation of the pancreas and abdominal aorta is limited by overlying bowel gas. Reviewed, dictated and finalized at location A. IMPRESSION: 2 simple cysts within the liver, corresponding to prior CT examinations for whi ch no further follow-up is needed. Phasic flow within the portal vein. Evaluation of the pancreas and abdominal aorta is limited by overlying bowel ga s.
== END 2024-03-24 08:03 | disposition home or self-care (01) ==
PROVIDERS: PCP Internal Medicine; Visit Provider Internal Medicine
DX: K76.89 Other specified diseases of liver (principal); N28.9 Disorder of kidney and ureter, unspecified
CPT/HCPCS: 76700

== ENCOUNTER 2024-06-29 07:03 | Outpatient (CLI) | payer MEDICARE, SELFPAY ==
[2024-06-29 07:19] LABS: Add Urine Microscopic? YES; Appearance Urine Clear (Clear); Bilirubin Urine Negative (Negative); Blood Urine Trace-intact (Negative); Color Urine Light Yellow (Yellow); Glucose Urine UA Negative (Negative); Ketones Urine Negative (Negative); Leukocyte Esterase Ur 1+ LEU/UL (Negative); Nitrate Urine Negative (Negative); Protein Urine Trace (Negative); Urobilinogen Urine 0.2 mg/dL (0.2-1.0)
[2024-06-29 07:21] LABS: Basophils Absolute Auto 0.03 K/mm3 (0.00-0.10); Basophils Percent Auto 0.6 % (0.0-1.0); Eosinophils Absolute Auto 0.21 K/mm3 (0.02-0.50); Eosinophils Percent Auto 4.3 % (1.0-6.0); Hematocrit 34.7 % (37.0-46.0); Hemoglobin 11.5 g/dL (12.4-15.3); Immature Granulocyte Absolute 0.02 K/mm3 (0.00-0.00); Immature Granulocyte Percent A 0.4 % (0.0-0.0); Lymphocytes Absolute Auto 1.46 K/mm3 (1.10-4.50); Lymphocytes Percent Auto 29.7 % (18.0-42.0); Mean Corpuscular HGB Conc 33.1 g/dL (32-36); Mean Corpuscular Volume 93.5 fL (78.0-102.0); Mean Platelet Volume 8.6 fl (8.7-11.0); Monocytes Absolute Auto 0.37 K/mm3 (0.10-0.90); Monocytes Percent Auto 7.5 % (2.0-11.0); Neutrophils Absolute Auto 2.83 K/mm3 (1.70-7.20); Neutrophils Percent Auto 57.5 % (50.0-70.0); Platelet Count Result 142 K/mm3 (150-420); Red Blood Count 3.71 M/mm3 (4.70-6.10); Red Cell Distribution Width 12.5 % (11.6-14.4); White Blood Count 4.9 K/mm3 (4.8-10.8)
[2024-06-29 07:25] LABS: Creatinine Urine 55.49 mg/dL (40-278); Total Protein Urine Random 31.9 mg/dL (0.0-11.9); Ur Ttl Prot Creatinine Ratio 0.57 mg/mg (0-0.20)
[2024-06-29 07:28] LABS: Bacteria Urine Trace /hpf
[2024-06-29 07:30] LABS: Hemoglobin A1C 5.3 % (<5.7)
[2024-06-29 07:51] LABS: Alanine Aminotransferase 23 U/L (16-63); Alkaline Phosphatase 63 U/L (46-116); Anion Gap 13 mmol/L (4-12); Aspartate Amino Transferase 10 U/L (15-37); Bilirubin,Total 0.4 mg/dL (0.00-1.00); Blood Urea Nitrogen 50 mg/dL (7-18); Calcium 8.8 mg/dL (8.5-10.1); Carbon Dioxide 20 mmol/L (21-32); Chloride 107 mmol/L (98-108); Cholesterol 151 mg/dL (0-200); Creatine Kinase 157 U/L (39-308); Estimated Glomerular Filt Rate 27; Glucose 119 mg/dL (70-99); HDL Direct 48 mg/dL (40-60); LDL Cholesterol Calculated 86 mg/dL (<130); Osmolality Calculated 304 mOsm/kg (285-295); Phosphorus 4.4 mg/dL (2.6-4.7); Potassium 4.8 mmol/L (3.5-5.1); Sodium 140 mmol/L (136-145); Total Protein 6.3 g/dL (6.4-8.2); Triglycerides 86 mg/dL (0-150)
== END 2024-06-29 07:04 | disposition home or self-care (01) ==
LOC: CHSLAB 07:06
PROVIDERS: PCP Internal Medicine; Visit Provider Internal Medicine Nephrology
DX: N18.4 Chronic kidney disease, stage 4 (severe) (principal); I12.9 Hypertensive chronic kidney disease with stage 1 through stage 4 chronic kidney disease, or unspecified chronic kidney disease; R73.01 Impaired fasting glucose; N39.0 Urinary tract infection, site not specified; E78.2 Mixed hyperlipidemia
CPT/HCPCS: 36415; 80053; 80061; 81001; 82550; 82570; 83036; 84100; 84156; 85025; 87086; 87186

== ENCOUNTER 2024-07-13 09:58 | Outpatient (CLI) | payer MEDICARE, SELFPAY ==
--- OUTSIDE RECORDS SUMMARY | 2024-07-13 11:00 | XMS_ITS | Clinical Summary ---
Author Organization [facility] [place] [address] Address [address] [place] [id number] Care Team Providers Care Best Worker Name Role Phone Hernán Fajardo MD Primary Care Provider + [phone] Allergies No known active allergies Medications FOLIC ACID/MV,IRON,DE N (CENTRUM ORAL) Take 1 tablet by mouth every morning Active ferrous sulfate 325 mg (65 mg of elemental iron) tablet Take 1 tablet (325 mg total) by mouth daily with breakfast Active acetaminophen 500 mg capsule Take 2 capsules (1,000 mg total) by mouth every 8 (eight) hours as needed for pain 1 Active Additional Information Patient not taking.Reported on 07/13/2021 cyclobenzaprine (FLEXERIL) 10 mg tablet Take 1 tablet (10 mg total) by mouth every 8 (eight) hours as needed for muscle spasms 20 tablet 1 Active Additional Information Patient not taking.Reported on 07/13/2021 lisinopriL (PRINIVIL,ZESTR IL) 20 mg tablet daily 1 Active amLODIPine (NORVASC) 10 mg tablet daily 1 Active polyethylene glycol (GoLYTELY) 236-22.74-6.74 -5.86 gram solution On 09/10/2022 at 6 PM, drink 1/2 jug of the Nulytely/Golytel y, then on 09/11/2022 at 9:15 AM drink the other 1/2 jug of the Nulytely/Golytel y until completely gone. 4000 mL 3 Active Active Problems Problem Noted Date Diagnosed Date Hydronephrosis 09/20/2020 Resolved Problems Problem Noted Date Diagnosed Date Resolved Date Parastomal hernia with obstr uction and without gangrene 09/20/2020 02/08/2021 Hernia with obstruction 02/11/2017 09/0 01/2021 Immunizations Name Administration Dates Next Due Influenza, Trivalent, IM (MDV) 03/03/2017 Pfizer SARS-CoV-2 Monovalent Vaccination (12+ Yrs) PURPLE 08/18/2020,07/28/2020 Pneumococcal Polysaccharide PPV23 03/21/2015 Surgical History Surgery Date Site/Laterality Comments CYSTECTOMY W/ URETEROILEAL CONDUIT Medical History Medical History Date Comments HTN (hypertension) Cancer (CMS/HCC) (HCC) bladder Family History Medical History Relation Name Comments No Known Problems Mother Anesthesia problems Neg Hx Relation Name Status Comments Father Mother Social History Tobacco Use Types Packs/Day Years Used Date Smoking Tobacco: Former Cigarettes 1 33 1 961 - 1993 Smokeless Tobacco: Never Tobacco Cessation:Counseling Given: Not Answered Social Connection and Isolat ion Panel [NHANES] Answer Date Recorded In a typical week, how many times do you talk on the phone with family, friends, or neighbors? Three times a week 01/17/2021 How often do you get togethe r with friends or relatives? Twice a week 01/17/2021 How often do you attend chur or yazidism services? More than 4 times per year 01/17/2021 Do you belong to any clubs o r organizations such as restorationist groups, unions, fraternal or athletic groups, or school groups? No 01/17/2021 How often do you attend meet ings of the clubs or organizations you belong to? Never 01/17/2021 Are you , , di vorced, , never , or living with a partner? 01/17/2021 AUDIT-C Answer Date Recorded Q1: How often do you have a drink containing alc ohol? 2-3 times a week 09/11/2022 Q2: How many drinks containi ng alcohol do you have on a typical day when you are drinking? 3 or 4 09/11/2022 Q3: How often do you have si x or more drinks on one occasion? Monthly 09/11/2022 Overall Financial Resource Strain (CARDIA) Answe r Date Recorded How hard is it for you to pa y for the very basics like food, housing, medical care, and heating? Not hard at all 01/17/2021 Hunger Vital Sign Answer Date Recorded Within the past 12 months, y ou worried that your food would run out before you got the money to buy more. Never true 01/18/20 21 Within the past 12 months, t he food you bought just didn't last and you didn't have money to get more. Never true 01/17/2021 PRAPARE - Transportation Answer Date Re corded In the past 12 months, has l ack of transportation kept you from medical appointments or from getting medications? No 12/31 In the past 12 months, has l ack of transportation kept you from meetings, work, or from getting things needed for daily living? No 01/17/2021 Personal Safety Answer Date Recorded Have you ever been in or are you currently in a harmful physical or emotional relationship or is someone making you feel afraid or unsafe? 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 Gender Identity Not on file Sexual Orientation Not on file Obstetrics History Last Filed Vital Signs Vital Sign Reading Time Taken Comments Blood Pressure 95/67 09/11/2022 3:55 PM CDT Pulse 65 09/11/2022 3:55 PM CDT Temperature 36.1 C (97 F) 09/11/2022 3:55 PM CDT Respiratory Rate 19 09/11/2022 3:55 PM CDT Oxygen Saturation 97% 09/11/2022 3:55 PM CDT Inhaled Oxygen Concentration - - Weight 98.9 kg (218 lb) 09/11/2022 2:24 PM CDT Height 185.4 cm (6' 1 ) 09/11/2022 2:24 PM CDT Body Mass Index 28.76 09/11/2022 2:24 PM CDT Plan of Treatment Health Maintenance Due Date Last Done Comments Depression Screening 1945 Hepatitis C Screening 1945 DTaP/Tdap/Td Vaccine (1 - Tdap) 1957 Hepatitis B Screening 1964 Zoster Vaccine (1 of 2) 1996 Well Visit 65+ 2011 Pneumococcal vaccine 65+ (2 of 2 - PCV) 03/21/2016 1 Fall Risk Assessment 09/12/2023 09/11/2022 Covid-19 Vaccine (3 - season) 2024, 07/28/2020 Influenza Vaccine (#1) 2024 03/03/2017 Abdominal Aortic Aneurysm (AAA) Screen Completed Colon Cancer Screening-CT Colonography Discontinued Colon Cancer Screening-Colonoscopy Discontinued 2022 Colon Cancer Screening-DNA Stool Discontinued 09/12/19 Colon Cancer Screening-FIT Discontinued 09/11/2022 Colon Cancer Screening-FOBT Discontinued 09/11/2022 Colon Cancer Screening-Sigmoidoscopy Discontinued 08/31 Colorectal Cancer Screening Discontinued Medical Devices Implanted Type Area Lobbyist Device Identifier Shelf Expiration Date Model / Serial / Lot [employer]/C R Bard [id number] Ventralight St Sepra 8x6in Uncoated Monofilament Lightweight - [id number] Implanted:Qty: 1 on 01/16/2021 by Zina Mckeon MD at [facility] Mesh N/A: Abdomen [employer] [id number] 03/29/2022 [id number] / / [id number] Procedures Procedure Name Priority Date/Time Associated Diagnosis Comments COLONOSCOPY 09/11/2022 3:[address] ABDOMEN PELVIS WO CONTRAST Schedule Routine, Read Routine (OP Routine) 10/09/2020 12:22 PM CDT Hydronephrosis, unspecified hydronephrosis type Hernia with obstruction from Last 3 Months or Most Recently Relevant to Health Maintenance Results * COLONOSCOPY (09/11/2022 3:28 PM CDT) Anatomical Region Laterality Modality Other Narrative Procedure Note Elia Mccrary MD - 09/11/2022 3:28 PM CDT [facility] Patient Name: Scott Thrasher Procedure Date: 09/11/2022 3:28 PM Date of : 1945 Admit Type: Outpatient Age: 77 Gender: Male Attending MD: Elia Wagner M.D. Room: [facility] ENDOSCOPY ROOM 9 Note Status: Finalized Procedure: Colonoscopy Indications: Positive Cologuard test Referring MD: Hernán Fajardo MD Providers: Elia Wagner M.D. Medicines: Monitored Anesthesia Care Complications: No immediate complications. Estimated Blood Loss: Estimated blood loss was minimal. Procedure: Pre-Anesthesia Assessment: - The risks and benefits of the procedure and the sedation options and risks were discussed with the patient. All questions were answered and informed consent was obtained. - Immediately prior to administration ofmedications, the patient was re-assessed for adequacy to receive sedatives. The benefits, risks and alternatives of theprocedure and sedation were discussed and informed consentwas obtained. All questions were answered. Please referto the signed informed consent document in the medical record. The colonoscopy was performed without difficulty. The patient tolerated the procedurewell. The quality of the bowel preparation was good. The quality of the bowel preparation was evaluatedusing the BBPS ([place] Bowel Preparation Scale) withscores of: Right Colon = 3, Transverse Colon = 3 and Left Colon = 3 (entire mucosa seen well with no residual staining, small fragments of stool or opaqueliquid). The total BBPS score equals 9. The bowelpreparation used was polyethylene glycol (PEG) via split dose instruction. The scope was passed under directvision. The CF [id number] endoscope was introduced through the anus and advanced to the cecum,identified by appendiceal orifice and ileocecal valve. Bowelprep was administered using a single dose. Findings: The perianal and digital rectal examinations were normal. Non-bleeding internal hemorrhoids were found during retroflexion. The hemorrhoids were mild. Six sessile polyps were found in the sigmoid colon, descending colon, ascending colon and cecum. The polyps were 2 to 6 mm in size. These polyps were removed with a cold snare. Resection and retrieval were complete. The exam was otherwise without abnormality on direct and retroflexion views. Impression: - Non-bleeding internal hemorrhoids. - Six 2 to 6 mm polyps in the sigmoid colon, in the descending colon, in the ascending colon and in the cecum, removed with a cold snare. Resected and retrieved. - The examination was otherwise normal on directand retroflexion views. Recommendation: - Await pathology results from tissue sampling. Ifyou do not receive a call from my office after 5business days following today's procedure, please call my office at [phone] and speak to my nurse. - Consider repeat colonoscopy in 3 years for surveillance based on clinical status at that time. This can be dicussed further with the patient's primary provider or in the GI clinic. - Return to referring provider as indicated. - In the unusual situation that you developabdominal pain, bleeding or other significant problems in the days following this procedure please call my office [phone]). After hours and eveningsplease call [phone] and speak to the GI fellow micah. Please tell the fellow that Dr. Wagner did your procedure and that you were instructed to have the fellow call me or the physician covering for me to discuss the management of your condition. If youhave an urgent problem, please go to the nearestemergency room and have the ER doctor call my office duringthe day or the GI fellow after hours and weekends to arrange admission or transfer to our facility.Please bring this report with you if you go to theemergency room. Attending Participation: I personally performed the entire procedure. Electronically signed by Elia Wagner MD Elia Wagner M.D. 09/11/2022 3:52:22 PM . Number of Addenda: 0 Note Initiated On: 09/11/2022 3:28 PM Recognized by the [employer] for promoting quality in endoscopy us Elia Wagner MD ENDOSCOPY PROCEDURES Final Result * CT Abdomen Pelvis WO Contrast (10/09/2020 12:22 PM CDT) Anatomical Region Laterality Modality Body N/A Computed Tomogra phy 10/09/2020 12:3 4 PM CDT Impressions 10/09/2020 12:34 PM CDT 1. Wide neck parastomal hernia associated with ileal conduit urostomy containing nonobstructed colon, small bowel, and its mesentery. No inflammatory surrogates in the hernia. 2. Postoperative change without evidence of recurrence or convincing evidence of metastasis. There is an indeterminant cluster of left para-aortic lymph nodes near the level of the left renal vein. 3. Small fat-containing indirect left inguinal hernia. Electronically signed by: Ben Galaviz M.D. 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 TECHNIQUE: Transaxial computed tomographic images of the abdomen and pelvis were obtained without intravenous contrast according to the standard protocol. COMPARISON: None available FINDINGS: Visualized lung bases are clear. Coronary artery calcifications. There are cysts throughout the liver along with smaller hypoattenuating lesions too small to accurately characterize. Gallbladder contains high density material may be sludge or small layering stones. The adrenals, pancreas, and spleen are normal. Left kidney has a lobulated contour which may be from prior infectious or other insults. Renal cysts are noted. There is mild prominence of the left urothelium which may be due to expected ileal conduit formation changes. Status post right nephrectomy with no suspicious findings in the resection bed. Ileal conduit formation. The urostomy stoma has a parastomal hernia that contains adjacent ascending colon and small bowel not associated with the ileal conduit along with mesentery. There is no obstruction or surrogates of inflammation within this wide necked hernia with a neck measuring up to 5 cm. Changes of cystoprostatectomy. No suspicious findings in the resection bed. Lymph node dissection the pelvis without suspicious pelvic lymphadenopathy. There are few prominent left para-aortic lymph node such as one lymph node with a lobulated contour associated retroperitoneal fat stranding measuring up to 9 mm short access on soft tissue image 86. This is at the level just below the left renal vein. Severe atherosclerosis of the abdominal aorta and its branches. There is a small fat-containing indirect left inguinal hernia. No suspicious osseous lesion. 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 TECHNIQUE: Transaxial computed tomographic images of the abdomen and pelvis were obtained without intravenous contrast according to the standard protocol. COMPARISON: None available FINDINGS: Visualized lung bases are clear. Coronary artery calcifications. There are cysts throughout the liver along with smaller hypoattenuating lesions too small to accurately characterize. Gallbladder contains high density material may be sludge or small layering stones. The adrenals, pancreas, and spleen are normal. Left kidney has a lobulated contour which may be from prior infectious or other insults. Renal cysts are noted. There is mild prominence of the left urothelium which may be due to expected ileal conduit formation changes. Status post right nephrectomy with no suspicious findings in the resection bed. Ileal conduit formation. The urostomy stoma has a parastomal hernia that contains adjacent ascending colon and small bowel not associated with the ileal conduit along with mesentery. There is no obstruction or surrogates of inflammation within this wide necked hernia with a neck measuring up to 5 cm. Changes of cystoprostatectomy. No suspicious findings in the resection bed. Lymph node dissection the pelvis without suspicious pelvic lymphadenopathy. There are few prominent left para-aortic lymph node such as one lymph node with a lobulated contour associated retroperitoneal fat stranding measuring up to 9 mm short access on soft tissue image 86. This is at the level just below the left renal vein. Severe atherosclerosis of the abdominal aorta and its branches. There is a small fat-containing indirect left inguinal hernia. No suspicious osseous lesion. IMPRESSION: 1. Wide neck parastomal hernia associated with ileal conduit urostomy containing nonobstructed colon, small bowel, and its mesentery. No inflammatory surrogates in the hernia. 2. Postoperative change without evidence of recurrence or convincing evidence of metastasis. There is an indeterminant cluster of left para-aortic lymph nodes near the level of the left renal vein. 3. Small fat-containing indirect left inguinal hernia. Electronically signed by: Ben Galaviz M.D. Brigido Jonas DO IMG CT PROCEDURES Final Result from Last 3 Months or Most Recently Relevant to Health Maintenance Insurance MEDICARE MEDICARE [employer]olution MEDICARE [facility] MEDICARE Address: [address] [address] MEDICARE [facility] MEDICARE Address: [place] [id number] [place] [address] Advance Directives For more information, please contact: [phone] Documents on File Type Date Recorded Patient Drum Attendant Expl anation ADVANCE DIRECTIVE 01/16/2021 6:01 AM Power of Gum Scoring Machine Operator-Medical ADVANCE DIRECTIVE 01/04/2021 10:02 AM Power of Gum Scoring Machine Operator-Medical * Full Code (Latest Code Status on File) Date Activated Date Inactivated Comments 09/11/2022 2:19 PM 09/11/2022 8:38 PM * Full Code Date Activated Date Inactivated Comments 01/16/2021 5:39 PM 01/21/2021 5:28 PM Care Teams Best Worker Relationship Specialty Start Date End Date Hernán Fajardo MD [address] [place] [address] PCP - General Internal Medicine 01/27/17
--- OUTSIDE RECORDS SUMMARY | 2024-07-13 11:00 | XMS_ITS | Referral Summary ---
Author Organization [facility] [place] [place] [address] Address [address] [place] [phone] Care Team Providers Care Locomotive Supervisor Name Role Phone Hernán Fajardo MD Primary Care Provider + [phone] Allergies No known active allergies Medications FOLIC ACID/MV,IRON,DC N (CENTRUM ORAL) Take 1 tablet by [...] Yrs) PURPLE 08/18/2020,07/28/2020 Pneumococcal Polysaccharide PPV23 03/21/2015 Social History Tobacco Use Types Packs/Day Years Used Date Smoking Tobacco: Former Cigarettes 1 33 1 961 - 1994 Smokeless Tobacco: Never Tobacco Cessation:Counseling Given: Not Answered Social Connection and Isolat ion Panel [NHANES] Answer Date Recorded In a typical week, how many times do you talk on the phone with family, friends, or neighbors? Three times a week 01/17/2021 How often do you get togethe r with friends or relatives? Twice a week 01/17/2021 How often do you attend chur or yazdanism services? 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 Mesh N/A: Abdomen [employer]/C R Bard [id number] 03/29/2022 [id number] / / [id number] Procedures Procedure Name Priority Date/Time Associated Diagnosis [...] Male Attending MD: Elia Wagner M.D. Room: [facility] ENDOSCOPY ROOM 9 Note Status: Finalized [...] the bowel preparation was evaluatedusing the BBPS ([place] Bowel Preparation Scale) withscores of: Right Colon = 3, Transverse Colon = 3 and Left Colon = 3 (entire mucosa seen well with no residual staining, small fragments of stool or opaqueliquid). The total BBPS score equals 9. The bowelpreparation used was polyethylene glycol (PEG) via split dose instruction. The scope was passed under directvision. The CF [id number] endoscope was introduced through the anus [...] today's procedure, please call my office at [phone] and speak to my nurse. - Consider [...] following this procedure please call my office [phone]). After hours and eveningsplease call [phone] and speak to the GI fellow onclise. Please tell the fellow that Dr. Wagner [...] On: 09/11/2022 3:28 PM Recognized by the [employer] for promoting quality in endoscopy Elia Wagner MD ENDOSCOPY PROCEDURES Final Result [...] Relevant to Health Maintenance Insurance MEDICARE MEDICARE [employer] [place] [address] MEDICARE [employer] Member Subscriber Plan / Payer (Ef fective 2020-) Name:Scott Thrasher JrJose Relation to Subscriber:Self Name:Scott Thrasher Jr. Payer ID:[id number] (NAIC) Type:UHC MEDICARE Address: [place] [id number] MEDICARE [employer] MEDICARE [employer] Advance Directives For more information, please contact: [phone] Documents on File Type Date Recorded Patient Respiratory Supervisor Expl anation ADVANCE DIRECTIVE 01/16/2021 6:01 AM Power of Striper-Medical ADVANCE DIRECTIVE 01/04/2021 10:02 AM Power of Striper-Medical * Full Code (Latest Code Status on File) Date Activated Date Inactivated Comments 09/11/2022 2:19 PM 09/11/2022 8:38 PM * Full Code Date Activated Date Inactivated Comments 01/16/2021 5:39 PM 01/21/2021 5:28 PM Care Teams Locomotive Supervisor Relationship Specialty Start Date End Date Hernán Fajardo MD [address] [place] [address] PCP - General Internal Medicine 01/27/17
[2024-07-13 11:26] LABS: Free T3 3.05 pg/mL (2.18-3.98); Free T4 Free Thyroxine 0.86 ng/dL (0.76-1.46); Thyroid Stimulating Hormone 0.97 uIU/mL (0.36-3.74)
== END 2024-07-13 09:59 | disposition home or self-care (01) ==
LOC: CHSLAB 09:59
PROVIDERS: PCP Internal Medicine; Visit Provider Internal Medicine
DX: E03.4 Atrophy of thyroid (acquired) (principal)
CPT/HCPCS: 36415; 84439; 84443; 84481

== ENCOUNTER 2024-11-01 08:38 | Outpatient (CLI) | payer MEDICARE, SELFPAY ==
--- OUTSIDE RECORDS SUMMARY | 2024-11-01 08:49 | XMS_ITS | Referral Summary ---
Author Organization [facility] [address] Address [address] [place] [address] Care Team Providers Care Solar Systems Designer Name Role Phone Hernán Fajardo MD Primary Care Provider Allergies No known active allergies Medications FOLIC ACID/MV,IRON,KS N (CENTRUM ORAL) Take 1 tablet by [...] without gangrene 09/20/2020 02/08/2021 Hernia with obstruction 02/11/201701/2021 Immunizations Immunization Administration Dates Next Due Influenza, Trivalent, IM [...] week 01/17/2021 How often do you attend [facility] or rastafari services? 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 Gender Identity Not on file Sexual Orientation [...] 2:24 PM CDT Height 185.4 cm (6' 1) 09/11/2022 2:24 PM CDT Body Mass Index 28.76 09/11/2022 2:24 PM CDT Plan of Treatment Not on file Medical Devices Implanted Type Area Fly Worker Device Identifier Shelf Expiration Date Model / Serial / Lot [employer] Inc/C R Bard [id number] Ventralight St Sepra 8x6in Uncoated Monofilament Lightweight - [id number] Implanted:Qty: 1 on 01/16/2021 by Zina Mckeon MD at [facility] Mesh N/A: Abdomen [employer]/C R Bard [id number] 03/29/2022 [id number] / / [id number] Procedures Procedure Name Priority Date/Time Associated Diagnosis [...] Male Attending MD: Elia Wagner M.D. Room: [facility] ENDOSCOPY ROOM 9 Note Status: Finalized Procedure: [...] the bowel preparation was evaluatedusing the BBPS (Blanch Bowel Preparation Scale) withscores of: Right Colon = 3, Transverse Colon = 3 and Left Colon = 3 (entire mucosa seen well with no residual staining, small fragments of stool or opaqueliquid). The total BBPS score equals 9. The bowelpreparation used was polyethylene glycol (PEG) via split dose instruction. The scope was passed under directvision. The CF [id number] 2202-721 endoscope was introduced through the anus [...] today's procedure, please call my office at [phone] and speak to my nurse. - Consider [...] following this procedure please call my office [phone]). After hours and eveningsplease call [phone] and speak to the GI fellow onclise. [...] On: 09/11/2022 3:28 PM Recognized by the [place] Society for Gastrointestinal Endoscopy for promoting quality [...] Recently Relevant to Health Maintenance Insurance MEDICARE [facility] MEDICARE ADVANTAGE [facility] MEDICARE ADVANTAGE Advance Directives For more information, please contact: [phone] Documents on File Type Date Recorded Patient Grape Picker Expl anation ADVANCE DIRECTIVE 01/16/2021 6:01 AM Power of Certified Paralegal-Medical ADVANCE DIRECTIVE 01/04/2021 10:02 AM Power of Certified Paralegal-Medical * Full Code (Latest Code Status on File) Date Activated Date Inactivated Comments 09/11/2022 2:19 PM 09/11/2022 8:38 PM * Full Code Date Activated Date Inactivated Comments 01/16/2021 5:39 PM 01/21/2021 5:28 PM Care Teams Solar Systems Designer Relationship Specialty Start Date End Date Hernán Fajardo MD [address] [place] [address] PCP - General Internal Medicine 01/27/17
--- OUTSIDE RECORDS SUMMARY | 2024-11-01 08:49 | XMS_ITS | Clinical Summary ---
Author Organization [facility] [address] Address [address] [place] [phone] Care Team Providers Care Belt Glass Sander Name Role Phone Hernán Fajardo MD Primary Care Provider [phone] Allergies No known active allergies Medications FOLIC ACID/MV,IRON,NV N (CENTRUM ORAL) Take 1 tablet by [...] Medical History Date Comments HTN (hypertension) Cancer (HCC) bladder Family History Medical History Relation Name Comments No Known Problems Mother Anesthesia problems Neg Hx Relation Name Status Comments Father Mother Social History Tobacco Use Types Packs/Day Years Used Date Smoking Tobacco: Former Cigarettes 1 33 1 - 1993 Smokeless Tobacco: Never Tobacco Cessation:Counseling [...] How often do you attend chur or samaritan services? 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 Gender Identity Not on file Sexual Orientation [...] Fall Risk Assessment 09/12/2023 09/11/2022 Covid-19 Vaccine ( season) 2024, 07/28/2020 Influenza Vaccine (Season Ended) 2025 03/03/20 17 Abdominal Aortic Aneurysm (AAA) Screen Completed Colon Cancer Screening-CT Colonography Discontinued Colon Cancer Screening-Colonoscopy Discontinued 2022 Colon Cancer Screening-DNA Stool Discontinued 09/12/19 23 Colon Cancer Screening-FIT Discontinued 09/11/2022 Colon Cancer Screening-FOBT Discontinued 09/11/2022 Colon Cancer Screening-Sigmoidoscopy Discontinued 08/31 Colorectal Cancer Screening Discontinued Medical Devices Implanted Type Area Disability Services Coordinator Device Identifier Shelf Expiration Date Model / Serial / Lot [employer] Inc/C R Bard [id number] Ventralight St Sepra 8x6in Uncoated Monofilament Lightweight - [id number] Implanted:Qty: 1 on 01/16/2021 by Zina Mckeon MD at [facility] Mesh N/A: Abdomen [employer]/C R Bard [id number] 03/29/2022 [id number] / / [id number] Procedures Procedure Name Priority Date/Time Associated Diagnosis [...] Male Attending MD: Elia Wagner M.D. Room: [facility] ENDOSCOPY ROOM 9 Note Status: Finalized Procedure: [...] the bowel preparation was evaluatedusing the BBPS ([place] Bowel Preparation Scale) withscores of: Right Colon = 3, Transverse Colon = 3 and Left Colon = 3 (entire mucosa seen well with no residual staining, small fragments of stool or opaqueliquid). The total BBPS score equals 9. The bowelpreparation used was polyethylene glycol (PEG) via split dose instruction. The scope was passed under directvision. The CF [id number] [id number] endoscope was introduced through the anus [...] today's procedure, please call my office at [phone] and speak to my nurse. - Consider [...] following this procedure please call my office [phone]). After hours and eveningsplease call [phone] and speak to the GI fellow micah. [...] On: 09/11/2022 3:28 PM Recognized by the [place] [employer] for Gastrointestinal Endoscopy for promoting quality [...] Relevant to Health Maintenance Insurance MEDICARE [facility] MEDICARE ADVANTAGE Advance Directives For more information, please contact: [phone] Documents on File Type Date Recorded Patient Coating Line Worker Expl anation ADVANCE DIRECTIVE 01/16/2021 6:01 AM Power of Rough Carpenter-Medical ADVANCE DIRECTIVE 01/04/2021 10:02 AM Power of Rough Carpenter-Medical * Full Code (Latest Code Status on File) Date Activated Date Inactivated Comments 09/11/2022 2:19 PM 09/11/2022 8:38 PM * Full Code Date Activated Date Inactivated Comments 01/16/2021 5:39 PM 01/21/2021 5:28 PM Care Teams Belt Glass Sander Relationship Specialty Start Date End Date Hernán Fajardo MD [address] [place], [place] [id number] PCP - General Internal Medicine 01/27/17
[2024-11-01 09:35] LABS: Albumin Level 4.2 g/dL (3.5-5.1); Anion Gap 8 mmol/L (4-12); Blood Urea Nitrogen 46 mg/dL (9-20); Carbon Dioxide 18 mmol/L (22-30); Chloride 111 mmol/L (98-107); Estimated Glomerular Filt Rate 29; Glucose 118 mg/dL (65-110); Osmolality Calculated 296 mOsm/kg (285-295); Phosphorus 3.2 mg/dL (2.5-4.5); Potassium 4.8 mmol/L (3.4-5.0); Sodium 137 mmol/L (137-145)
[2024-11-01 09:38] LABS: Creatinine Urine 64.8 mg/dL; Total Protein Urine Random 39 mg/dL
[2024-11-01 09:51] LABS: Vitamin D 25 Hydroxy 62.4 ng/mL
[2024-11-02 15:13] LABS: Parathyroid Intact 43 pg/mL (16-77)
== END 2024-11-01 08:39 | disposition home or self-care (01) ==
LOC: CHSLAB 08:39
PROVIDERS: PCP Internal Medicine; Visit Provider Internal Medicine Nephrology
DX: I12.9 Hypertensive chronic kidney disease with stage 1 through stage 4 chronic kidney disease, or unspecified chronic kidney disease (principal); N18.4 Chronic kidney disease, stage 4 (severe); N25.81 Secondary hyperparathyroidism of renal origin; E55.9 Vitamin D deficiency, unspecified
CPT/HCPCS: 36415; 80069; 82306; 82570; 83970; 84156

== ENCOUNTER 2024-11-05 07:30 | Outpatient (CLI) | payer MEDICARE, SELFPAY ==
--- OUTSIDE RECORDS SUMMARY | 2024-11-05 07:34 | XMS_ITS | Clinical Summary ---
Author Organization [facility] [address] Address [address] [place] [phone] Care Team Providers Care Nursing Scheduler Name Role Phone Hrenán Fajardo MD Primary Care Provider [phone] Allergies No known active allergies Medications FOLIC [...] How often do you attend chur or hindu services? 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 Room: [facility] ENDOSCOPY ROOM 9 Note Status: Finalized Procedure: [...] the bowel preparation was evaluatedusing the BBPS ([place] Bowel Preparation Scale) withscores of: Right Colon = 3, Transverse Colon = 3 and Left Colon = 3 (entire mucosa seen well with no residual staining, small fragments of stool or opaqueliquid). The total BBPS score equals 9. The bowelpreparation used was polyethylene glycol (PEG) via split dose instruction. The scope was passed under directvision. The CF [id number] 2202-721 endoscope was introduced through the anus [...] today's procedure, please call my office at [phone] and speak to my nurse. - Consider [...] following this procedure please call my office [phone]). After hours and eveningsplease call [phone] and speak to the GI fellow micah. [...] On: 09/11/2022 3:28 PM Recognized by the [place] Society for Gastrointestinal Endoscopy for promoting quality [...] Relevant to Health Maintenance Insurance MEDICARE [facility] MEDICARE ADVANTAGE Advance Directives For more information, please contact: [phone] Documents on File Type Date Recorded Patient Entry Level Electrician Expl anation ADVANCE DIRECTIVE 01/16/2021 6:01 AM Power of Clock Assembler-Medical ADVANCE DIRECTIVE 01/04/2021 10:02 AM Power of Clock Assembler-Medical * Full Code (Latest Code Status on File) Date Activated Date Inactivated Comments 09/11/2022 2:19 PM 09/11/2022 8:38 PM * Full Code Date Activated Date Inactivated Comments 01/16/2021 5:39 PM 01/21/2021 5:28 PM Care Teams Nursing Scheduler Relationship Specialty Start Date End Date Hernán Fajardo MD [address] [place], [place] [id number] PCP - General Internal Medicine 01/27/17
--- OUTSIDE RECORDS SUMMARY | 2024-11-05 07:34 | XMS_ITS | Referral Summary ---
Author Organization [facility] [address] Address [address] [place] [phone] Care Team Providers Care Dependency Program Director Name Role Phone Hernán Fajardo MD Primary Care Provider [phone] Allergies No known active allergies Medications FOLIC ACID/MV,IRON,WI N (CENTRUM ORAL) Take 1 tablet by [...] week 01/17/2021 [facility] you attend [facility] or zoroastrian services? 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 Room: [facility] ENDOSCOPY ROOM 9 Note Status: Finalized Procedure: [...] the bowel preparation was evaluatedusing the BBPS ([place] Bowel Preparation Scale) withscores of: Right Colon = 3, Transverse Colon = 3 and Left Colon = 3 (entire mucosa seen well with no residual staining, small fragments of stool or opaqueliquid). The total BBPS score equals 9. The bowelpreparation used was polyethylene glycol (PEG) via split dose instruction. The scope was passed under directvision. The CF [id number] 2202-721 endoscope was introduced through the anus [...] today's procedure, please call my office at [phone] and speak to my nurse. - Consider [...] following this procedure please call my office [phone]). After hours and eveningsplease call [phone] and speak to the GI fellow onclise. [...] On: 09/11/2022 3:28 PM Recognized by the [place] Society for Gastrointestinal Endoscopy for promoting quality [...] Relevant to Health Maintenance Insurance MEDICARE [facility] MEDICARE ADVANTAGE , [facility] MEDICARE ADVANTAGE [facility] Address: [address] [address] [place] [address] [facility] MEDICARE ADVANTAGE [facility]IC[facility] Address: [address] [address] [place] [address] Advance Directives For more information, please contact: [phone] Documents on File Type Date Recorded Patient Dockmaster Expl anation ADVANCE DIRECTIVE 01/16/2021 6:01 AM Power of Utility Operator Yarn-Medical ADVANCE DIRECTIVE 01/04/2021 10:02 AM Power of Utility Operator Yarn-Medical * Full Code (Latest Code Status on File) Date Activated Date Inactivated Comments 09/11/2022 2:19 PM 09/11/2022 8:38 PM * Full Code Date Activated Date Inactivated Comments 01/16/2021 5:39 PM 01/21/2021 5:28 PM Care Teams Dependency Program Director Relationship Specialty Start Date End Date Hernán Fajardo MD [address] [place] [address] PCP - General Internal Medicine 01/27/17
[2024-11-05 07:48] LABS: Hematocrit 34.6 % (37.0-46.0); Hemoglobin 11.6 g/dL (12.4-15.3); Mean Corpuscular HGB Conc 33.5 g/dL (32-36); Mean Corpuscular Hemoglobin 31.4 pg (27.0-31.0); Mean Corpuscular Volume 93.8 fL (78.0-102.0); Mean Platelet Volume 8.6 fl (8.7-11.0); Platelet Count Result 154 K/mm3 (150-420); Red Blood Count 3.69 M/mm3 (4.70-6.10); Red Cell Distribution Width 12.3 % (11.6-14.4); White Blood Count 5.3 K/mm3 (4.8-10.8)
[2024-11-05 08:13] LABS: Add Urine Microscopic? YES; Appearance Urine Clear (Clear); Bilirubin Urine Negative (Negative); Blood Urine Trace-intact (Negative); Color Urine Light Yellow (Yellow); Glucose Urine UA Negative (Negative); Ketones Urine Negative (Negative); Leukocyte Esterase Ur 2+ (Negative); Nitrate Urine Negative (Negative); Protein Urine Trace (Negative); Urobilinogen Urine 0.2 mg/dL (0.2-1.0)
[2024-11-05 08:14] LABS: Bacteria Urine Trace /hpf; RBC Urine 0-2 /hpf (0-2); Squamous Epithelial Cell Urine None Seen /hpf (Few)
[2024-11-05 12:23] LABS: Alanine Aminotransferase 18 U/L (6-50); Albumin Level 4.1 g/dL (3.5-5.1); Alkaline Phosphatase 61 U/L (38-126); Anion Gap 9 mmol/L (4-12); Aspartate Amino Transferase 24 U/L (17-59); Bilirubin,Total 0.6 mg/dL (0.2-1.3); Blood Urea Nitrogen 57 mg/dL (9-20); Calcium 8.8 mg/dL (8.4-10.2); Carbon Dioxide 18 mmol/L (22-30); Chloride 111 mmol/L (98-107); Cholesterol 154 mg/dL (0-200); Estimated Glomerular Filt Rate 22; Glucose 123 mg/dL (65-110); HDL Direct 38 mg/dL; LDL Cholesterol Calculated 93 mg/dL (<130); Osmolality Calculated 302 mOsm/kg (285-295); Potassium 4.5 mmol/L (3.4-5.0); Sodium 138 mmol/L (137-145); Total Protein 6.3 g/dL (6.3-8.2); Triglycerides 114 mg/dL (<150)
[2024-11-05 12:45] LABS: Hemoglobin A1C 5.3 % (<5.7)
== END 2024-11-05 07:31 | disposition home or self-care (01) ==
LOC: CHSLAB 07:31
PROVIDERS: PCP Internal Medicine; Visit Provider Internal Medicine
DX: N18.4 Chronic kidney disease, stage 4 (severe) (principal); R73.01 Impaired fasting glucose; E78.00 Pure hypercholesterolemia, unspecified; E78.2 Mixed hyperlipidemia; N39.0 Urinary tract infection, site not specified
CPT/HCPCS: 36415; 80053; 80061; 81001; 83036; 85027; 87086; 87088

== ENCOUNTER 2025-01-07 08:32 | Outpatient (CLI) | payer MEDICARE, SELFPAY ==
--- OUTSIDE RECORDS SUMMARY | 2025-01-07 08:36 | XMS_ITS | Clinical Summary ---
Author Organization [facility] [address] Address [address] [place] [phone] Care Team Providers Care Bank Representative Name Role Phone Hernán Fajardo MD Primary Care Provider [phone] Allergies No known active allergies Medications FOLIC ACID/MV,IRON,OR N (CENTRUM ORAL) Take 1 tablet by [...] Hernia with obstruction 02/11/2017 09/0 01/2021 Immunizations Immunization Administration Dates Next Due Influenza, [...] How often do you attend chur or druze services? 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 Gender Identity Not on file Sexual Orientation [...] - season) 2024, 07/28/2020 Influenza Vaccine (#1) 2025 03/03/2017 Abdominal Aortic Aneurysm (AAA) Screen Completed Colon Cancer Screening-CT Colonography Discontinued Colon Cancer Screening-Colonoscopy Discontinued 2022 Colon Cancer Screening-DNA Stool Discontinued 09/12/19 Colon Cancer Screening-FIT Discontinued 09/11/2022 Colon Cancer Screening-FOBT Discontinued 09/11/2022 Colon Cancer Screening-Sigmoidoscopy Discontinued 08/31 Colorectal Cancer Screening Discontinued Medical Devices Implanted Type Area Carpenter Helper Device Identifier Shelf Expiration Date Model / Serial / Lot [employer]ol Inc/C R Bard [id number] Ventralight St Sepra 8x6in Uncoated Monofilament Lightweight - [id number] Implanted:Qty: 1 on 01/16/2021 by Zina Mckeon MD at [facility] Mesh N/A: Abdomen [employer]/C R Bard [id number] 03/29/2022 [id number] / / [id number] Procedures Procedure Name Priority Date/Time Associated Diagnosis [...] Male Attending MD: Elia Wagner M.D. Room: [facility] ENDOSCOPY ROOM 9 Note Status: Finalized Procedure: Colonoscopy Indications: Positive Cologuard test Referring MD: Henrán Fajardo MD Providers: Elia Wagner M.D. Medicines: [...] the bowel preparation was evaluatedusing the BBPS ([place] Bowel Preparation Scale) withscores of: Right Colon = 3, Transverse Colon = 3 and Left Colon = 3 (entire mucosa seen well with no residual staining, small fragments of stool or opaqueliquid). The total BBPS score equals 9. The bowelpreparation used was polyethylene glycol (PEG) via split dose instruction. The scope was passed under directvision. The CF [id number] endoscope was introduced through the anus [...] today's procedure, please call my office at [phone] and speak to my nurse. - Consider [...] following this procedure please call my office [phone]). After hours and eveningsplease call [phone] and speak to the GI fellow micah. Please tell the fellow that Dr. Wagner did your procedure and that you were instructed to have the fellow call me or the physician covering for me to discuss the management of your condition. If youhave an urgent problem, [facility] and have the ER doctor call my office duringthe day or the GI fellow after hours and weekends to arrange admission or transfer to our facility.Please bring this report with you if [facility]. Attending Participation: I personally performed the entire procedure. Electronically signed by Elia Wagner MD Elia Wagner M.D. 09/11/2022 3:52:22 PM . Number of Addenda: 0 Note Initiated On: 09/11/2022 3:28 PM Recognized by the [place] [employer] for Gastrointestinal Endoscopy for promoting quality [...] Recently Relevant to Health Maintenance Insurance MEDICARE [facility]IC[facility]ANTAGE [facility] Address: [address] [address] [place] [address] [facility] Address: [address] [address] [facility] Address: [address] [address] MEDICARE ADVANTAGE Advance Directives For more information, please contact: [phone] Documents on File Type Date Recorded Patient Nurse Care Manager Expl anation ADVANCE DIRECTIVE 01/16/2021 6:01 AM Power of Hvac Engineer-Medical ADVANCE DIRECTIVE 01/04/2021 10:02 AM Power of Hvac Engineer-Medical * Full Code (Latest Code Status on File) Date Activated Date Inactivated Comments 09/11/2022 2:19 PM 09/11/2022 8:38 PM * Full Code Date Activated Date Inactivated Comments 01/16/2021 5:39 PM 01/21/2021 5:28 PM Care Teams Bank Representative Relationship Specialty Start Date End Date Hernán Fajardo MD [address] [place], [place] [id number] PCP - General Internal Medicine 01/27/17
[2025-01-07 09:02] LABS: Anion Gap 10 mmol/L (4-12); Blood Urea Nitrogen 58 mg/dL (9-20); Calcium 9.6 mg/dL (8.4-10.2); Carbon Dioxide 17 mmol/L (22-30); Chloride 113 mmol/L (98-107); Estimated Glomerular Filt Rate 21; Glucose 150 mg/dL (65-110); Osmolality Calculated 309 mOsm/kg (285-295); Potassium 4.9 mmol/L (3.4-5.0); Sodium 140 mmol/L (137-145)
== END 2025-01-07 08:33 | disposition home or self-care (01) ==
LOC: CHSLAB 08:33
PROVIDERS: PCP Internal Medicine; Visit Provider Internal Medicine
DX: I12.9 Hypertensive chronic kidney disease with stage 1 through stage 4 chronic kidney disease, or unspecified chronic kidney disease (principal); N18.4 Chronic kidney disease, stage 4 (severe)
CPT/HCPCS: 36415; 80048

== ENCOUNTER 2025-03-10 08:27 | Outpatient (CLI) | payer MEDICARE, SELFPAY ==
[2025-03-10 09:01] LABS: Total Protein Urine Random 40 mg/dL; Ur Ttl Prot Creatinine Ratio 0.72 mg/mg (0-0.20)
[2025-03-10 09:28] LABS: Albumin Level 4.4 g/dL (3.5-5.1); Anion Gap 11 mmol/L (4-12); Blood Urea Nitrogen 43 mg/dL (9-20); Calcium 9.8 mg/dL (8.4-10.2); Carbon Dioxide 20 mmol/L (22-30); Chloride 111 mmol/L (98-107); Estimated Glomerular Filt Rate 26; Glucose 142 mg/dL (65-110); Osmolality Calculated 306 mOsm/kg (285-295); Potassium 5.1 mmol/L (3.4-5.0); Sodium 142 mmol/L (137-145)
== END 2025-03-10 08:28 | disposition home or self-care (01) ==
LOC: CHSLAB 08:28
PROVIDERS: PCP Internal Medicine; Visit Provider Internal Medicine Nephrology
DX: N18.4 Chronic kidney disease, stage 4 (severe) (principal); I12.9 Hypertensive chronic kidney disease with stage 1 through stage 4 chronic kidney disease, or unspecified chronic kidney disease
CPT/HCPCS: 36415; 80069; 82570; 84156

== ENCOUNTER 2025-05-12 07:35 | Outpatient (CLI) | payer MEDICARE, SELFPAY ==
[2025-05-12 07:46] LABS: Hematocrit 34.1 % (37.0-46.0); Hemoglobin 11.6 g/dL (12.4-15.3); Mean Corpuscular HGB Conc 34.0 g/dL (32-36); Mean Corpuscular Hemoglobin 32.1 pg (27.0-31.0); Mean Corpuscular Volume 94.5 fL (78.0-102.0); Platelet Count Result 169 K/mm3 (150-420); Red Blood Count 3.61 M/mm3 (4.70-6.10); White Blood Count 7.7 K/mm3 (4.8-10.8)
[2025-05-12 07:47] LABS: Add Urine Microscopic? YES; Appearance Urine Clear (Clear); Glucose Urine UA Negative (Negative); Leukocyte Esterase Ur 2+ (Negative); Nitrate Urine Positive (Negative); Specific Grav Ur 1.010 (1.010-1.020)
[2025-05-12 08:18] LABS: Hemoglobin A1C 5.1 % (<5.7)
[2025-05-12 08:24] LABS: Alanine Aminotransferase 15 U/L (6-50); Albumin Level 4.4 g/dL (3.5-5.1); Alkaline Phosphatase 63 U/L (38-126); Anion Gap 9 mmol/L (4-12); Aspartate Amino Transferase 20 U/L (17-59); Bilirubin,Total 0.5 mg/dL (0.2-1.3); Blood Urea Nitrogen 48 mg/dL (9-20); Calcium 9.4 mg/dL (8.4-10.2); Carbon Dioxide 21 mmol/L (22-30); Chloride 113 mmol/L (98-107); Cholesterol 144 mg/dL (0-200); Creatine Kinase 153 U/L (55-170); Estimated Glomerular Filt Rate 23; Glucose 127 mg/dL (65-110); HDL Direct 52 mg/dL; Iron 62 ug/dL (49-181); Osmolality Calculated 310 mOsm/kg (285-295); Potassium 4.9 mmol/L (3.4-5.0); Sodium 143 mmol/L (137-145); Total Protein 6.5 g/dL (6.3-8.2); Triglycerides 96 mg/dL (<150)
[2025-05-12 08:58] LABS: Ferritin 87.40 ng/mL (11.1-264)
== END 2025-05-12 07:36 | disposition home or self-care (01) ==
PROVIDERS: PCP Internal Medicine; Visit Provider Internal Medicine
DX: R73.01 Impaired fasting glucose (principal); I12.9 Hypertensive chronic kidney disease with stage 1 through stage 4 chronic kidney disease, or unspecified chronic kidney disease; N18.4 Chronic kidney disease, stage 4 (severe); E78.2 Mixed hyperlipidemia; R25.2 Cramp and spasm
CPT/HCPCS: 36415; 80053; 80061; 81001; 82550; 82728; 83036; 83540; 85027